=== PATIENT | male | born 1970 | race Caucasian/White ===

== ENCOUNTER 2016-07-14 02:29 | Emergency (ER) | payer OTHER ==
[~2016-07-14] VITALS: Ht 177.8 cm; Wt 136.4 kg
[~2016-07-14 02:29] MED LIST: DALB500V IV
[2016-07-14 02:37] VITALS: BP 164/82; PULSE 107; RESP 22; O2SAT 94
--- NOTE | 2016-07-14 02:56 | ED.REPORT ---
HPI-Rash / Abscess Date of Service Jul 14, 2016 ED Provider: Bi Cruz MD Patient is an obese 46 year old male with a history of IV drug abuse, hepatitis C, and previous abscesses positive for MRSA who presents to the ED with a large abscess to his right upper chest that has been present for the past week. He reports associated pain, redness, swelling, and clear drainage. Patient also has an ulcer on the dorsum of his left foot, which developed 2 weeks ago. He also reports having right shoulder pain for several months. Patient states that he uses heroin daily and methamphetamine occasionally "when he is tired". Patient reports previously going to treatment for his drug abuse in the past. The patient was previously on Suboxone while in inpatient treatment for heroin abuse, but he states that they stopped using it once he transitioned into outpatient treatment. 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 He admits to having multiple other small sores from IVDA. He denies a fever. Nursing Notes Stated Complaint: RT SHOULDER PAIN, ABSCESS ON CHEST AND LEFT FOOT Chief Complaint: Skin Rash/Abscess Nursing Notes Reviewed: Yes Allergies: Coded Allergies: Sulfa (Sulfonamide Antibiotics) (Verified Allergy, Unknown, 12/10/14) Scheduled Buprenorphine HCl/Naloxone HCl (Suboxone 8 mg-2 mg Sl Film) 1 Each Film 1 EACH SL BID Dalbavancin HCl (Dalvance) 500 Mg Vial 500 MG IV ONCE To be given in MOC on 12/22/14 General Time Seen by MD: 02:49 Chief Complaint Abscess Hx Obtained From: Patient Arrived By: Walk-in Onset Occurred: 1 week ago Symptom Duration: Since onset Quality: Painful Severity: Current: Moderate Severity: Maximum: Moderate Recent Healthcare: No recent doctor visit, No recent hospitalization Similar Sx Previous: No Past Medical History Past Medical History Notes: PCP: None Past Medical History IVDU (heroin) MRSA infected abscesses due to IVDU hepatitis C Reports: Morbid Obesity Past Surgical History Denies Smoking History Current Every Day Smoker, Heavy Tobacco Smoker Social History Alcohol Use: Denies alcohol use Drug Use: IV drugs, Meth, Other Other Social History: Local resident 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 Physical Exam Initial Vital Signs Vital Signs (First) Date Time Temp Pulse Resp B/P Pulse Ox O2 Delivery O2 Flow Rate FiO2 07/14/16 02:37 37.0 107 22 164/82 94 Room Air Initial VS: Reviewed, Vital signs abnormal Head / Eyes: Atraumatic, Normocephalic, PERRL ENT: Conjunctiva normal, No scleral icterus Neurologic: Alert, Oriented, Nonfocal Psychiatric: Mood/affect normal, Behavior normal, Normal thought content General/Constitutional: Awake, Alert Appearance / Presentation: Positive: Obese Skin: Warm, Dry Rash / Lesion Notes: multiple sores from IV injections. Below right nipple there is a large indurated erythematous area with drainage. Rash / Lesion Pattern: Positive: Track cordon Head / Eyes: Normocephalic, PERRL, EOMI Respiratory / Chest: Breath sounds NL, Breath sounds = bilat, No respiratory distress large bruised area on his upper right chest Cardiovascular: Regular rhythm Heart Rate / Rhythm: Positive: Tachycardia Upper Extremity / MS: Neurologic intact, Vascular intact Lower Extremity / Pelvis / MS: Neurologic intact, Vascular intact Ankle / Foot: No deformity, Neurologic intact small ulcer to the dorsum of the right foot, appears clean and healing Interpretation & Diagnostics CT Chest Interpretation CONCLUSION: Right chest wall abscess cavity filled with air. The cavity communicates with the skin surface. No extension into the deep soft tissue structures. Splenomegaly. Possible cirrhotic changes of the liver. Radiologist: Emile Villarreal MD 07/14/2016 - 4:16:30 AM PST Study type: Chest CT no contrast Interpretation / Wet Read by: Interpret - Radiologist Procedures Incision & Drainage Abscess Time: 04:47 Procedure Performed by: ED physician Consent / Setup / Site Prep: Consent from patient, Time-out performed, Hand hygiene observed, Stand sterile technique, Sterile drapes applied Location of Abscess: right chest wall Skin Preparation Agent: Shurclens Local Anesthesia: Lidocaine w epi 1% Incised Abscess with Scalpel: #11 Pus Drained: Large, Purulent discharge Post-Procedure / Complications: Packing placed, Culture obtained, Gram stain ordered, Dressing applied, No complications, Condition improved, Tolerated procedure well, Patient stable Re-Eval/Medical Decision Med Decision/Clinical Course 46-year-old IV heroin user presents with an infection in his right chest wall. This is started to drain on its own. We were unable to draw blood or get venous access, even with ultrasound-guided attempts. CT scan without IV contrast showed no deep extension of the abscess of these right anterior chest wall. The abscess was then drained a moderate amount of pus and a gauze wick was placed. He was given clindamycin 300 mg by mouth 4 times a day, #10 day supply dispensed. The patient requested and I will write him a prescription for Suboxone for 7 days during which time he will attempt to get into treatment. Re-Evaluation/Progress #1: Time of Eval: 04:43 Re-Evaluation/Progress Note: Informed the patient of the results of his CT scan. The abscess does not extend down to the muscle, meaning that I&D can be preformed in the ED. Patient will be discharged on antibiotics. Re-Evaluation/Progress #2: Time of Eval: 05:05 Patient Status: Condition improved Re-Evaluation/Progress Note: I&D complete. Patient understands and agrees with the plan to be discharged home. Discharge instructions and follow-up discussed. All questions were addressed. Return to the ED warnings given. Counseled Regarding: Diagnosis, Need for follow-up, When/why to return to ED Discharge & Departure Impression: Primary Impression: Chest wall abscess Additional Impression: Heroin abuse Disposition: Home Discharge Condition All VS Reviewed: Yes Condition: Stable Patient Instructions: Abscess Incision and Drainage (ED), Buprenorphine/ Naloxone (By mouth) Additional Instructions: Clindamycin 300 mg by mouth 4 times a day, 10 day supply dispensed. Removal by 2 inches of that packing every day. Follow up with me on Thursday evening after 9 pm here in the emergency room for wound recheck. Suboxone 8/2 film or tab, one dissolved orally twice daily, #14 dispensed. [facility]up at [facility] or [facility] for outpatient Suboxone management. Referrals: Chyna Calvert MD (PCP) Scribe Attestation Portions of this note were transcribed by Aleah Mota. I, Dr. Cruz, personally performed the history, physical exam and medical decision-making; I reviewed and confirmed the accuracy of the information in the transcribed note. Signed by: Stephan Aleman, 07/14/2016 [id number] copies to: Chyna Calvert MD, Howard L MD Jul 14, 2016 02:56 Aleah Mota Jul 14, 2016 03:08
[2016-07-14] MEDS ORDERED: 0.9% Sodium Chloride 1,000 ML IV ONE (03:09)
[2016-07-14] MEDS ORDERED: Ondansetron 2 mg/mL 2 mL Inj IV PRN (03:10)
[2016-07-14] MEDS ORDERED: BUPR1FIL3 SL (05:16)
[2016-07-14 05:37] VITALS: BP 160/80; PULSE 100; RESP 22; O2SAT 95
[2016-07-14] MEDS ORDERED: _Clindamycin 150 mg Capsule PO SCH (06:30)
--- NOTE | 2016-07-14 09:55 | DRSVH ---
PROCEDURE: CT CHEST WITHOUT CONTRAST ([id number]) INDICATIONS: deep right pectoral abscess TECHNIQUE: Noncontrast 5 mm thick sections acquired from the pulmonary apices to the posterior costophrenic angl es. 7 mm thick coronal and sagittal MIP reformats were then acquired. For radiation dose reduction, the following was used: automated exposure control, adjustment of mA and/or kV according to patient size. COMPARISON: None. FINDINGS: Image quality: Excellent. Lungs and pleura: There is a 4 mm groundglass nodule in the right middle lobe (series 3 image 27). T here is discoid atelectasis in the right upper lobe. No acute air space opacities. No pleural effusi ons or pneumothorax. Central and peripheral airways are patent and normal in caliber. Mediastinum: Heart size is normal. No pericardial effusion. No mediastinal adenopathy by size crit eria. Thoracic aorta and central pulmonary arteries are normal in size. Esophagus is normal in jamie amanda. No hiatal hernia. Bones and chest wall: There is skin thickening a complex thickwalled air-fluid collection within the subcutaneous tissue of the right anterior chest wall measuring 3.7 x 4.3 cm, consistent with an absc ess. Note is made of gynecomastia. No suspicious bony lesions. No vertebral body compression fractures. No axillary or supraclavicular adenopathy by size criteria. Thyroid gland is normal. Abdomen: There are gallstones Spleen is enlarged. IMPRESSION: 1. A 3.7 x 4.3 cm complex air/fluid collection in the subcutaneous tissue of the right anterior chest wall consistent with an abscess. There is skin thickening in the right anterior chest wall consisten t with cellulitis. 2. Cholelithiasis. 3. Splenomegaly. 4. A 4 mm groundglass nodule in the right middle lobe. Please see followup recommendation. No significant discrepancy with the application software developer radiology preliminary report. Fleischner Society criteria for SUB-SOLID lung nodule followup. Solitary pure ground-glass nodules5 mm or lessNo followup needed. >5 mm3 mo follow-up CT to confirm persistence. Then annual CT for 3 years. Part-solid nodules3 mo follow-up CT to confirm persistence . If persistent with solid component <5 mm, annual CT for at least 3 years. If solid component is 5 mm or more, biopsy or surgical resection. Consider PET-CT for lesions > 10 mm. Multiple sub-solid nodulesPure ground glass nodules [address] at 2 and 4 years. Pure ground glass nodules >5 mm without dominant lesion. [address] to confirm persistence, then annual followup CT for at least 3 years. Dominant nodule(s) with part-solid or solid component. [address] to confirm persistence. If persistent, consider biopsy or surgical resection, jose if lesions have >5 m m solid component. Dictated by: Kamlesh Tavares M.D. on 07/14/2016 at 9:47 Transcribed by: FARHANA on 07/14/2016 at 9:54 Approved by: Kamlesh Tavaers M.D. on 07/14/2016 at 10:15
== END 2016-07-14 05:38 | disposition home or self-care (01) ==
LOC: SED 02:29
DX: L02.213 Cutaneous abscess of chest wall (principal); F11.10 Opioid abuse, uncomplicated; L97.529 Non-pressure chronic ulcer of other part of left foot with unspecified severity; M25.511 Pain in right shoulder; F17.200 Nicotine dependence, unspecified, uncomplicated; Z86.14 Personal history of Methicillin resistant Staphylococcus aureus infection; Z86.19 Personal history of other infectious and parasitic diseases; Z88.2 Allergy status to sulfonamides

== ENCOUNTER 2016-09-05 07:45 | Observation (INO) | payer OTHER ==
[~2016-09-05] VITALS: Ht 177.8 cm; Wt 145.4 kg
[2016-09-05] VITALS (13 sets, daily range): BP systolic 117–153; BP diastolic 52–89; PULSE 68–93; RESP 15–44; O2SAT 96–100
[~2016-09-05 07:45] MED LIST changes: +BUPR1FIL3 SL; +HYDROmorphone 2 mg/mL Inj ONE
--- NOTE | 2016-09-05 07:56 | ED.REPORT ---
HPI-Rash / Abscess Date of Service Sep 05, 2016 ED Provider: Keanu Corey MD 46 year old male with a history of IV heroin abuse, MRSA, and hepatitis C presents to the ER complaining of abscesses to is right abdomen, and right lower thigh noticed three days ago. Per patient speculation, symptoms are caused by a "bad batch of heroin". He also reports a wound to the dorsum of the left foot. Patient denies fever, chills, nausea, and vomiting. Currently he uses heroin regularly, but expresses interest in rehabilitation. Last heroin use was 02:00 this morning. He typically he uses approximately 1g heroin per use. Nursing Notes Stated Complaint: ABSCESS Chief Complaint: Skin Rash/Abscess Nursing Notes Reviewed: Yes Allergies: Coded Allergies: Sulfa (Sulfonamide Antibiotics) (Verified Allergy, Unknown, 12/10/14) Scheduled Buprenorphine HCl/Naloxone HCl (Suboxone 8 mg-2 mg Sl Film) 1 Each Film 1 EACH SL BID Dalbavancin HCl (Dalvance) 500 Mg Vial 500 MG IV ONCE To be given in MOC on 12/22/14 General Time Seen by MD: 07:55 Chief Complaint Abscess Hx Obtained From: Patient Arrived By: Walk-in Onset Occurred: 3 days ago Symptom Duration: Since onset Location: : Abdomen: Lower extremity (Right) Quality: Painful Severity: Current: Moderate Severity: Maximum: Moderate Associated with: Denies Fever, Denies Nausea, Denies Vomiting Pertinent Negative: Pt denies other symptoms Related History: Reports: MRSA Similar Sx Previous: Yes Past Medical History Past Medical History Notes: PCP: None Past Medical History IVDU (heroin) MRSA infected abscesses due to IVDU hepatitis C Reports: Morbid Obesity Past Surgical History Denies Smoking History Current Every Day Smoker, Heavy Tobacco Smoker Social History Alcohol Use: Denies alcohol use Drug Use: IV drugs, Meth, Other Other Social History: Local resident 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 Physical Exam Initial Vital Signs Vital Signs (First) Date Time Temp Pulse Resp B/P Pulse Ox O2 Delivery O2 Flow Rate FiO2 09/05/16 07:47 36.2 93 17 153/84 100 Room Air Initial VS: Reviewed Head / Eyes: Atraumatic, Normocephalic Neck: Supple, Non-tender, Full range of motion Extremities: Vascular intact, Neuro intact Neurologic: Alert, Oriented, Nonfocal Psychiatric: Mood/affect normal, Behavior normal, Normal thought content General/Constitutional: Awake, Alert, Well developed, Well nourished Appearance / Presentation: Positive: Obese Skin: Warm, Dry, Intact Abscess Notes: Large abscesses to the Right anterior thigh, and Right abdominal wall. Respiratory / Chest: Breath sounds NL, Breath sounds = bilat, No respiratory distress, No rales, No rhonchi, No wheezing Cardiovascular: Heart rate NL, Regular rhythm, Heart sounds NL, Peripheral circulation NL Upper Extremity / MS: Inspection NL, No swelling, Non-tender, No erythema Ankle / Foot: Full range of motion, Neurologic intact, Vascular intact 4mm healing ulcer, dorsum of the Left foot Interpretation & Diagnostics Lab Results Interpretation Result Diagram: 09/05/16 0950 09/05/16 1023 Test 09/05/16 09:50 White Blood Count 6.5th/mm3 (3.8-10.1) Red Blood Count 3.92mil/mm3 (4.40-5.80) Hemoglobin 10.8g/dL (13.8-17.2) Hematocrit 33.4% (41.0-50.0) Mean Corpuscular Volume 85.2fL (81-100) Mean Corpuscular Hemoglobin 27.6pg (27.0-35.0) Mean Corpuscular Hemoglobin Concent 32.3% (32.0-37.0) Red Cell Distribution Width 14.0% (12.3-15.4) Platelet Count 149bil/L (150-400) Neutrophils (%) (Auto) 67.8% (40-74) Lymphocytes (%) (Auto) 19.6% (14-46) Monocytes (%) (Auto) 9.6% (4-12) Eosinophils (%) (Auto) 2.6% (0-5) Basophils (%) (Auto) 0.2% (0-3) Prothrombin Time 10.2sec (8.1-12.5) Prothromb Time International Ratio 0.95ratio Re-Eval/Medical Decision Source of Hx: Old records Re-Evaluation/Progress : Time of Eval: 08:46 Re-Evaluation/Progress Note: Completed bedside ultrasound. Discussed US results and physical examination findings and need for admission for surgery. Patient is amenable to the plan. Last PO intake was milk around 06:50 this morning. Consultation #1: Referral / Consult Name: Cecil Zhu MD Consulted With: Surgeon Requested Call at: 08:57 Call Returned at: 08:59 Note: Agrees to consult. Admit to hospitalist. Consultation #2: Referral / Consult Name: Eyal Hunt MD Consulted With: Anesthesia Call Returned at: 09:39 Consultation #3: Referral / Consult Name: Jim Watts MD Consulted With: Hospitalist Call Returned at: 09:52 Elevated Guard: Agrees with eval, Agrees with plan, Accepts admit Counseled Regarding: Diagnosis, Lab results, Need for admission Discharge & Departure Impression: Primary Impression: Abscess of abdominal wall Additional Impression: Abscess of right thigh Disposition: ADMITTED TO HOSPITAL Discharge Condition All VS Reviewed: Yes Condition: Stable Referrals: Chyna Calvert MD (PCP) Stephan Attestation Portions of this note were transcribed by Cristian Colbert. I, Dr. Corey, personally performed the history, physical exam and medical decision-making; I reviewed and confirmed the accuracy of the information in the transcribed note. Signed by: Stephan Ramos, 09/05/2016 and 09:58 copies to: Chyna Calvert MD, Kirk H MD Sep 05, 2016 07:56 CRISTIAN COLBERT Sep 05, 2016 08:01
[2016-09-05 09:54] LABS: BASOPHILS % (AUTO) 0.2 % (0-3); EOSINOPHILS % (AUTO) 2.6 % (0-5); MONOCYTES % (AUTO) 9.6 % (4-12); Mean Corpuscular Hemoglobin 27.6 pg (27.0-35.0); Mean Corpuscular Volume 85.2 fL (81-100); NEUTROPHILS % (AUTO) 67.8 % (40-74); Platelet Count 149 bil/L (150-400)
[2016-09-05] MEDS ORDERED: Ondansetron 2 mg/mL 2 mL Inj IVPUSH PRN ×2 (10:10→15:10)
[2016-09-05] MEDS ORDERED: Vancomycin Dose per Pharmacist XX SCH (10:10)
[2016-09-05] MEDS ORDERED: Polyethylene Glycol (PEG) 17 Gm Powder PO PRN (10:10)
[2016-09-05] MEDS ORDERED: Alum-Mag Hydrox-Simeth 30 mL Suspension PO PRN (10:10)
[2016-09-05] MEDS ORDERED: MetoCLOpramide 5 mg/mL 2 mL Inj ONE (10:16)
[2016-09-05] MEDS ORDERED: Propofol 10,000 mCg/mL 20 mL Inj ONE (10:16)
[2016-09-05] MEDS ORDERED: Ondansetron 2 mg/mL 2 mL Inj ONE (10:16)
[2016-09-05 10:19] LABS: INR 0.95 ratio
--- NOTE | 2016-09-05 10:33 | PCM.HPSURG ---
Subjective Date of Service: Sep 05, 2016 Referring Provider: Admitting Physician: Jim Watts MD Primary Care Physician: Nopcp Attending Physician: Jim Watts MD Surgeon: José Antonio Zhu MD Chief Complaint Skin rash/abscess History of Present Illness 46 y/o obese male with a history of IV heroin use, recurrent skin and soft tissue infections including MRSA, and hepatitis C who presented to the ED complaining of right-sided abscesses of his thigh and abdomen for the past 3-5 days. He reports chronic bilateral lower extremity redness and swelling which he feels is at baseline. He states that he has had several sores and small abscesses recently that he 'popped' but when the one on his thigh kept getting bigger he decided to come in. He endorses injecting heroin directly into his thigh and attributes the abscess to a 'bad batch of heroin'. 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 He denies fever, chills, chest pain or palpitations, nausea, and vomiting. He expresses interest in rehab but currently uses heroin regularly, ~1g per use, with his last injection at 02:00 this morning. He denies fever, chills, shortness of breath, chest pain or palpitations, diarrhea , nausea and vomiting. He endorses right sided abdominal as well as lower extremity pain and swelling. In the ED, he was afebrile and hypertension with a BP of 153/84 and a pulse of 93. SpO2 100% on room air with a RR of 17. A bedside ultrasound was performed and surgery consulted from the ED. White blood cell count is within normal limits, hemoglobin is 10.8, hematocrit is 33.4, platelets 149 and PT/INR 10.2/ 0.95. Additional labs still pending at this time. Patient admitted for I&D on right thigh as well as right chest and IV antibiotics. 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 Hx Alcohol Use: No Hx Substance Use: Yes (Heroin daily, meth occasionally) Hx Tobacco Use: Yes PMH HEENT History History of ENT Problems?: No HEENT History: Denies:: Cataracts Dysphagia Sinus Problem Cardiovascular History History of Heart Problems?: Yes Cardiovascular History: Positive for:: Edema Denies:: Congestive Heart Failure Hypertension Respiratory History of Respiratory Problem: No Respiratory History: Denies:: Tuberculosis Neurological History Hx Neurologic Problems?: No Gastrointestinal History HX of GI Problems?: No Genitourinary History Hx of Gu Problems?: No Female/Male History Reproductive History Male: Denies: Prostate Problems Scrotal Mass Musculoskeletal History Hx Musculoskeletal Problems?: No Psycho Social History Hx of Psycho/Social Problems?: No (denies) Other History Hx Any Other Health Problems?: No Other History: Positive for:: Hospitalization ([facility] 4 years ago) Diabetes: No Other History/Comments IV Drug Use (Heroine/Methamphetamine) MRSA infected abscesses due to IV Drug Use History of recurrent skin/soft tissue infections Hepatitis C Obesity BMI 41.1 Social History Hx Alcohol Use: NoHx Substance Use: Yes (Heroin daily, meth occasionally)Hx Tobacco Use: Yes Smoking Status: Current Every Day Smoker Heavy Tobacco Smoker Family History PMH Family Member: Father (emphysema) Review of Systems Constitutional: Denies: Chills, Fever ENT: Denies: Membranes Dry, Ulcers/Sores in Mouth Cardiovascular: Denies: Chest Pain, Palpitations Respiratory: Denies: Shortness of Breath Gastrointestinal: Denies: Nausea, Vomiting Musculoskeletal: Reports: Redness, Shoulder Pain, Swelling Skin: Reports: Lesions, Rash Neurological: Denies: Confusion, Dizziness H&P Surgical Exam Exam General: Alert, Oriented X3, No Acute Distress Lungs: Clear to Auscultation Heart: Regular Rate/Rhythm (difficult to auscultate due to body habitus, no murmurs appreciated. ) Chest: Large, indurated and erythematous abscess on R chest Abdomen: Soft, Other ( Numerous hyperpigemented lesions presumably from prior faruncles/abscess. Scattered echymosis) Extremities: Distal Pulses Palpable, Warm (erythematous with circumferential brawny discoloration, scattered ecchymosis bilaterally, blisters noted on right tibia, small ulceration on dorsum of left foot), Edema Generalized Neuro: Grossly Neurologically Intact Lab & Micro Results: Laboratory Tests Test 09/05/16 09:50 09/05/16 10:23 White Blood Count 6.5th/mm3 (3.8-10.1) Red Blood Count 3.92mil/mm3 (4.40-5.80) Hemoglobin 10.8g/dL (13.8-17.2) Hematocrit 33.4% (41.0-50.0) Mean Corpuscular Volume 85.2fL (81-100) Mean Corpuscular Hemoglobin 27.6pg (27.0-35.0) Mean Corpuscular Hemoglobin Concent 32.3% (32.0-37.0) Red Cell Distribution Width 14.0% (12.3-15.4) Platelet Count 149bil/L (150-400) Neutrophils (%) (Auto) 67.8% (40-74) Lymphocytes (%) (Auto) 19.6% (14-46) Monocytes (%) (Auto) 9.6% (4-12) Eosinophils (%) (Auto) 2.6% (0-5) Basophils (%) (Auto) 0.2% (0-3) Prothrombin Time 10.2sec (8.1-12.5) Prothromb Time International Ratio 0.95ratio Sodium Level 138mEq/L (134-144) Potassium Level 3.9mEq/L (3.5-5.2) Chloride Level 100mEq/L (97-108) Carbon Dioxide Level 24mmol/L (18-29) Blood Urea Nitrogen 13mg/dL (6-24) Creatinine 0.61mg/dL (0.76-1.27) Estimat Glomerular Filtration Rate 152mL/min (>59) Glucose Level 147mg/dL (60-99) Calcium Level 8.9mg/dL (8.5-10.1) Total Bilirubin 0.5mg/dL (0.0-1.2) Aspartate Amino Transf (AST/SGOT) 54U/L (0-50) Alanine Aminotransferase (ALT/SGPT) 71U/L (0-44) Alkaline Phosphatase 81U/L (25-150) Total Protein 7.0g/dL (6.4-8.4) Albumin 3.7g/dL (3.4-5.0) Assessment & Plan Assessment 46 y/o obese male with a history of IV heroin use, recurrent skin and soft tissue infections including MRSA, and hepatitis C admitted for I&D of R chest abscess as well as R thigh abscess and IV antibiotics. . Pain Evaluation: Adequate Pain Control VTE Prophylaxis Indicated: Meets Criteria for Anticoag Therapy, VTE on Admission VTE Mechanical Devices: Intermittant Pneumatic CD Plan: -I&D of R chest and R thigh abscess planned for this afternoon -Continue IV antibiotics Resuscitation Status: CPR: Attempt Resuscitation Attending Statement: I personally interviewed and examined the pt, and I agree with Dr. Gee's assessment and plan. Proceed to I & D later today. Martha Gee DO Sep 05, 2016 10:33 Cecil Zhu MD Sep 10, 2016 10:50
[2016-09-05] MEDS ORDERED: Vancomycin Inj 2,000 MG in 0.9% Sodium Chloride 500 ML IV ONE (11:00)
--- NOTE | 2016-09-05 11:29 | NUR ---
Expectations Spoke with Chapin Leija in ER regarding behavioral contract. Er reviewed behavioral contract with pt and pt states he understands. Pt understands that belongings will be locked up, visiting hours with be 8 am-9pm and nobody can stay the night, all belongings of visitors may not enter the room, curtains will be open and shade up, we may ask visitors to leave if we feel it appropriate. Pt states that the last time he did heroin was 09/05 @ 0130 and generally starts going through withdrawals 8 hours later. ER unable to obtain IV line therefore plan is for anesthesia to start an iv line. Pt is cooperative at this time. Care conts
[2016-09-05 11:35] LABS: APPEARANCE,URINE CLEAR (CLEAR,HAZY); COLOR,URINE DARK YELLOW (YELLOW)
[2016-09-05 11:36] LABS: OCCULT BLOOD,URINE NEGATIVE (NEGATIVE); UROBILINOGEN,URINE NORMAL (NORMAL)
[2016-09-05] MEDS ORDERED: IBUP800T28 PO (13:00)
[2016-09-05] MEDS ORDERED: Lactated Ringer's 1,000 ML IV ONE (13:30)
--- NOTE | 2016-09-05 14:03 | NUR ---
Wound Care Wound care consulted, pt seen at bedside. 46 yo iv drug user with indurated abscesses at right abdomen and right thigh, awaiting surgical I&D later today. Pt also has dry superficial abscess at his left foot. Pt will need packing changes after surgery and possible follow up at wound center, no current wound care needs.
[2016-09-05] MEDS: Ampicillin-Sulbactam Inj 3,000 MG in 0.9% Sodium Chloride 100 ML IV SCH ×2 (14:30→20:15)
--- NOTE | 2016-09-05 15:00 | NUR ---
TO OR No IV access at this time. Report given to Ivory in the OR. Transported to the OR via a hospital bed.
[2016-09-05] MEDS ORDERED: Lactated Ringer's 1,000 ML IV SCH (15:09)
[2016-09-05] MEDS ORDERED: Lactated Ringer's 500 ML IV PRN (15:09)
--- NOTE | 2016-09-05 15:09 | PCM.HPANE ---
Patient Data Surgeon Admitting Provider:Jim Watts MD Attending Provider:Jim Watts MD Primary Care Physician:Nopcp Other Provider: Reason for Visit Multiple Skin Abscess MULTIPLE SKIN ABSCESS Ht/WT & BMI Height (Feet): 5 Height (Inches): 10 Weight (Kilograms): 145.45 Body Mass Index Allergies Coded Allergies: Sulfa (Sulfonamide Antibiotics) (Verified Allergy, Unknown, 12/10/14) Diabetes History Hx Diabetes?: No MRSA MRSA: Yes Medications Hypertension Medication: No Home Meds Incl Beta Josefina: No Reported Medications Ibuprofen 800 Mg [id number] Mg PO BID Ref 0 09/05/16 Discontinued Scripts Buprenorphine HCl/Naloxone HCl (Suboxone 8 mg-2 mg Sl Film)1 Each Film1 Each SL BID #14 FILM Prov:Bi Cruz MD 07/14/16 Dalbavancin HCl (Dalvance)500 Mg [id number] Mg IV ONCE #1 VIAL To be given in MOC on 12/22/14 Prov:Larry Joe MD 12/15/14 History History of ENT Problems?: No HEENT History: Denies:: Cataracts Dysphagia Sinus Problem Hx of Heart Problems?: Yes Cardiovascular History: Positive for:: Edema (BLE) Denies:: Cardiac Surgery Chest Pain Congestive Heart Failure Heart Murmur Hypertension Irregular Heartbeat Pacemaker Thrombophlebitis Hx of Respiratory Problem?: No Respiratory History: Denies:: Tuberculosis Hx Neurologic Problems?: No Hx of GI Problems?: No Hx of Problems?: No Male Hx: Denies:: Prostate Problems Scrotal Mass Testicular Surgery Hx Musculoskeletal Problems?: No Hx of Psycho/Social Problems?: No Hx Surgeries?: Yes (GANGLION CYST REMOVAL) Hx Any Other Health Problems?: No Other History: Positive for:: Hospitalization ([facility]) History Blood Transfusions: Denies:: Blood Transfuse Reaction Blood Transfusions Hx Diabetes: No 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 Hx Alcohol Use: NoHx Substance Use: Yes (HEROIN DAILY, METH) Smoking Status: Current Every Day Smoker Heavy Tobacco Smoker Have You Smoked inLast 12 mo: YesApprox How Many Cigarettes/day: 1/2 PACK PER DAY Stop/Bang Treated for Sleep Apnea?: No Do You Have a CPAP Machine?: No S-Snoring: Do You Snore Loudly: Yes T-Tired: feel tired, fatigued: No O-Obsered: Observed not breath: No P-Blood Pressure: treated: No B- Body Mass Index > 35 kg/m2: Yes A- Age over 50: Yes N- Neck Large Circumference: No G- Gender Male: Yes JOSEPH Total Score: 4 JOSEPH Risk Assessment: High Risk, =/>3 Yes JOSEPH Category 2: Yes Risk Assessment Category Category 1A: Patient has history of documented sleep apnea, and HAS NOT received any narcotic, sedative or anesthesia administration during this stay. Category 1B: Patient has history of documented sleep apnea, and HAS received any narcotic , sedative or anesthesia administration during this stay Category 2: Patient has SUSPECTED Obstructive Sleep Apnea, and HAS received any narcotic , sedative or anesthesia administration during this stay. Category 3: Patient has SUSPECTED Obstructive Sleep Apnea and HAS NOT received narcotic, sedative or anesthesia administration during this stay. Category 4: Outpatient in Procedural Areas with known sleep apnea or who screen positive for High Risk via the STOP/BANG questionnaire. Exam Exam Vital Signs Vital Signs Date Time Temp Pulse Resp B/P Pulse Ox O2 Delivery O2 Flow Rate FiO2 09/05/16 11:25 36.6 86 18 126/74 100 Room Air 09/05/16 10:23 83 16 149/89 100 Room Air 09/05/16 07:47 36.2 93 17 153/84 100 Room Air General Appearance: Oriented X3 HEENT/AIRWAY: MP 3 Lungs: Normal Air Movement Heart: Regular Rate/Rhythm Meds/Labs/Diagnostics Labs Test 09/05/16 09:50 09/05/16 10:23 09/05/16 11:00 White Blood Count 6.5th/mm3 (3.8-10.1) Red Blood Count 3.92mil/mm3 (4.40-5.80) Hemoglobin 10.8g/dL (13.8-17.2) Hematocrit 33.4% (41.0-50.0) Mean Corpuscular Volume 85.2fL (81-100) Mean Corpuscular Hemoglobin 27.6pg (27.0-35.0) Mean Corpuscular Hemoglobin Concent 32.3% (32.0-37.0) Red Cell Distribution Width 14.0% (12.3-15.4) Platelet Count 149bil/L (150-400) Neutrophils (%) (Auto) 67.8% (40-74) Lymphocytes (%) (Auto) 19.6% (14-46) Monocytes (%) (Auto) 9.6% (4-12) Eosinophils (%) (Auto) 2.6% (0-5) Basophils (%) (Auto) 0.2% (0-3) Prothrombin Time 10.2sec (8.1-12.5) Prothromb Time International Ratio 0.95ratio Sodium Level 138mEq/L (134-144) Potassium Level 3.9mEq/L (3.5-5.2) Chloride Level 100mEq/L (97-108) Carbon Dioxide Level 24mmol/L (18-29) Blood Urea Nitrogen 13mg/dL (6-24) Creatinine 0.61mg/dL (0.76-1.27) Estimat Glomerular Filtration Rate 152mL/min (>59) Glucose Level 147mg/dL (60-99) Calcium Level 8.9mg/dL (8.5-10.1) Total Bilirubin 0.5mg/dL (0.0-1.2) Aspartate Amino Transf (AST/SGOT) 54U/L (0-50) Alanine Aminotransferase (ALT/SGPT) 71U/L (0-44) Alkaline Phosphatase 81U/L (25-150) Total Protein 7.0g/dL (6.4-8.4) Albumin 3.7g/dL (3.4-5.0) Urine Color Dark yellow (YELLOW) Urine Appearance Clear (CLEAR,HAZY) Urine pH 6.0 (5.0-8.0) Urine Specific [place] 1.030 (1.003-1.035) Urine Protein Negativemg/dL (NEG,TRACE) Urine Glucose (UA) Negativemg/dL (NEGATIVE) Urine Ketones Negativemg/dL (NEGATIVE) Urine Occult Blood Negative (NEGATIVE) Urine Nitrite Negative (NEGATIVE) Urine Bilirubin Negative (NEGATIVE) Urine Urobilinogen Normalmg/dL (NORMAL) Urine Leukocyte Esterase Negative (NEGATIVE) Urine RBC 0-2/hpf (0-2) Urine WBC 0-5/hpf (0-5) Urine Epithelial Cells Occasional/hpf (NONE-MOD) Urine Crystals None seen (NONE SEEN) Urine Bacteria None/hpf (NONE-FEW) Urine Hyaline Casts Occasional/lpf (NONE) Urine Granular Casts None seen (NONE SEEN) Urine Waxy Casts None seen (NONE SEEN) Urine Red Blood Cell Casts None seen (NONE SEEN) Urine White Blood Cell Casts None seen (NONE SEEN) Urine Mucus Present (None Seen) Urine Trichomonas None seen (NONE SEEN) Urine Yeast None (NONE SEEN) Urinalysis Comment None Urine Culture Reflexed Not indicated Urine Opiates Screen Positive Urine Methadone Screen Negative Urine Barbiturates Screen Negative Urine Amphetamines Screen Positive Urine Benzodiazepines Screen Negative Urine Cocaine Metabolite Screen Negative Urine Cannabinoids Screen Negative Plan Impression Patient chart reviewed, patient interviewed and anesthestic plan with risks, benefits, and alternatives discussed, and informed consent obtained. NPO Status: > 8 hrs ASA Physical Status: ASA4 Life Threatening Anesthetic Support Modalities: Central Line Anesthetic Plan: GA Bene/Risks/Altern/Consents: Yes HP Complete Prior to Induction: Yes Micah Felipe MD Sep 05, 2016 15:09
[2016-09-05] MEDS ORDERED: EPHEDrine Sulfate 50 mg/mL Inj IVPUSH PRN (15:10)
[2016-09-05] MEDS ORDERED: Dexamethasone 4 mg/mL Inj IVPUSH PRN (15:10)
[2016-09-05] MEDS ORDERED: Phenylephrine 10,000 mCg/mL Inj IVPUSH PRN (15:10)
[2016-09-05] MEDS ORDERED: fentaNYL-PF 50 mCg/mL 2 mL Inj IVPUSH PRN (15:10)
[2016-09-05] MEDS ORDERED: MetoCLOpramide 5 mg/mL 2 mL Inj IVPUSH PRN (15:10)
[2016-09-05] MEDS ORDERED: HYDROmorphone 1 mg/mL Inj IVPUSH PRN (15:10)
--- NOTE | 2016-09-05 15:57 | PCM.HPMED ---
Subjective Date of Service Sep 05, 2016 Primary Provider: Admitting Physician: Jim Watts MD Primary Care Physician: Nopkarol Attending Physician: Jim Watts MD Admit Status: From the Emergency Department, Full Admit, Admit to Red Team Chief Complaint: abscess/painful swelling on anterior abdominal wall and right thigh/4 days. History of Present Illness: 46 gentleman with past medical history of IV heroin abuse, recurrent cellulitis and abscess including MRSA requiring multiple hospitalizations, and hepatitis C presented to the ED complaining of right thigh and right upper quadrant abdominal wall painful swelling of 4 days. Admits injecting heroine to these sites recently. he has chronic bilateral lower extremity redness and swelling which he feels is at baseline. denies fever, chills, nausea, and vomiting. He expresses interest in rehab but currently uses heroin regularly, ~1g per use, with his last injection at 02:00 this morning. In the ED, he was afebrile and hypertension with a BP of 153/84 and a pulse of 93. SpO2 100% on room air with a RR of 17. No leukocytosis, hemoglobin is 10.8,, platelets 149, CMP unremarkable except slightly elevated transaminase Ed unable to place IV line in emergency room, surgery consulted. Scheduled for incision and drainage. IV line to be established by anesthesia in OR for IV antibiotics. 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 Obese patient is lying comfortably in hospital bed HEENT: Head is normocephalic atraumatic, Pupils equal and reactive, extraocular movements intact, Lungs clear to auscultation bilaterally Heart regular rate and rhythm without murmurs gallops or rubs Abdomen RUQ abdominal wall tender swelling, erythematous, hot to touch, slightly fluctuant 7x5 cm, Extremities right thigh tender swelling, erythematous, hot to touch, slightly fluctuant 7x8cm, bilateral leg erythema, nontender, not hot to touch Psych alert and oriented to person place and time Neuro cranial nerves II through XII are grossly intact Lymph: There is no lymphadenopathy appreciated in the cervical supra infraclavicular regions : no mayorga Lab and Diagnostics Result Diagram: 09/05/16 0950 09/05/16 1023 Assessment & Plan 46 gentleman with past medical history of IV heroin abuse, recurrent cellulitis and abscess including MRSA requiring multiple hospitalizations, and hepatitis C presented to the ED complaining of right thigh and right upper quadrant abdominal wall painful swelling of 4 days # Right thigh and RUQ abdominal abscess, acute, poa -Difficulty to place IV line in emergency room, Scheduled for incision and drainage for later today. IV line to be established by anesthesia in OR for IV antibiotics. -Blood culture to be collected before antibiotics. -Zosyn and vancomycin ordered -Pain control: Oxycodone 20 mg by mouth every 4-6 h, will try to avoid IV narcotics. -surgeon Dr Zhu # IV drug abuse, chronic -SW consult # hep C infection , chronic -Recommend outpatient follow-up #Obesity, chronic full code Patient admitted under inpatient status with expected length of stay > 2 midnights for severity of present symptoms, complexities of treatment plan and risk for adverse events Pain Evaluation: Adequate Pain Control VTE Prophylaxis Indicated: Meets Criteria for Anticoag Therapy, VTE on Admission VTE Mechanical Devices: Intermittant Pneumatic CD Resuscitation Status: CPR: Attempt Resuscitation Jim Watts MD Sep 05, 2016 15:57
--- NOTE | 2016-09-05 17:17 | PCM.ANEP1 ---
Post Anesthesia Phase 1 PACU Phase 1 Assessment Date of Service: Sep 05, 2016 Vital Signs Vital Signs Date Time Temp Pulse Resp B/P Pulse Ox O2 Delivery O2 Flow Rate FiO2 09/05/16 17:15 78 44 96 Room Air 09/05/16 17:09 82 18 99 Room Air 09/05/16 16:56 36.2 79 24 123/52 100 Simple Mask 8 09/05/16 11:25 36.6 86 18 126/74 100 Room Air 09/05/16 10:23 83 16 149/89 100 Room Air Anesthetic Administered: GA Level of Alertness: Awake, talking Pain: No Pain Scale Score: 8 Nausea or Vomiting: No Oxygen Delivery: Room Air Lungs: Normal Air Movement Micah Felipe MD Sep 05, 2016 17:17
--- NOTE | 2016-09-05 17:19 | PCM.ANEP2 ---
Post Anesthesia Evaluation ASA/CMS Post Anesthesia VS in Patient's Normal Range?: Yes Resp Stable; Airway Patent?: Yes CV Function & Hydration Stable: Yes Mental Status Recovered?: Yes Pain control Satisfactory?: Yes N/V Control Satisfactory?: Yes Additional Comments patient demanding to leave the hospital. does not care that he has not finished his antibiotics. states he is unwilling to stay and have the hospitalists give him so little narcotic. Currently he denies any pain and further states he is not going to stay and we can so nothing to keep him. Ordered the Right IJ to be removed so he can go home Micah Felipe MD Sep 05, 2016 17:19
--- NOTE | 2016-09-05 17:34 | OP ---
[address] [address] OPERATIVE REPORT PATIENT: CRISTHIAN CHONG : 1970 MR#: [id number] ADMIT: 09/05/2016 JOB ID: [id number] DATE OF SURGERY: 09/05/2016 SURGEON: Cecil Zhu MD AIRCRAFT ENGINEER: Martha Gee DO, resident one. ANESTHESIA: General. PREOPERATIVE DIAGNOSIS(ES): Right thigh and right chest wall abscesses. POSTOPERATIVE DIAGNOSIS(ES): Right thigh and right chest wall abscesses. PRINCIPAL PROCEDURE: Incision and drainage of right thigh and right chest wall abscesses. INDICATION FOR PROCEDURE: The patient is a 46-year-old male with IV drug abuse who has large subcu abscesses of the right thigh and right chest wall. PRINCIPAL FINDING: Successful I and D of both abscess. The right chest wall incision was 10 cm and the right thigh incision was 12 cm. PROCEDURE COURSE: The patient was brought to the operating table and underwent general endotracheal anesthesia. The patient was also provided with a right IJ central line. The patient was started on IV antibiotics. A time-out was performed. The patient's right chest wall and right thigh abscesses were then prepped and draped in the usual sterile fashion. Next, we started with the right chest wall abscess. Using a syringe, and using an 18-gauge needle, the abscess was aspirated and sent for cultures. The same thing was applied to the right thigh abscess and it was aspirated and sent for cultures. Next, a transverse incision was made over the right chest wall abscess and the incision was extended medially and laterally, and went down until the abscess cavity was unroofed. Hemostasis was verified using cautery. The subcutaneous tissue was probed both digitally and using a Angeli clamp. Until we were sure there were no undrained abscesses. The abscess cavity was irrigated with saline and hemostasis was controlled. The incision at the chest wall was 10 cm. Next, we turned our attention to the right thigh abscess and again using the scalpel a transverse incision was made. The abscess cavity was unroofed and we suctioned off all of the pus. The abscess cavity was probed also digitally and also using a Angeli clamp until we were sure there was no undrained abscess. There was some black subcu tar-appearing like tissue and this was excised and sent to Pathology. The wound cavity was irrigated with saline and hemostasis was controlled. The right thigh incision was 12 cm. Next, Kerlix soaked in half-strength Betadine was then packed into both cavities and then sterile dressing was applied. By the end of the procedure, needle counts and sponge counts were correct. The patient was then extubated and taken to the recovery room in stable satisfactory condition. A chest x-ray will be ordered in the recovery room.
--- NOTE | 2016-09-05 19:01 | DRSVH ---
PROCEDURE: X-RAY CHEST ONE VIEW, PORTABLE ([id number]) INDICATIONS: check central line TECHNIQUE: One view of the chest was acquired. COMPARISON: [facility], , CHEST 1VW (PORTABLE), 12/11/2014, 13:52. FINDINGS: Surgical changes and devices: There is a right IJ central line with the tip projecting to the area of SVC. Lungs and pleura: Lung volumes are small consistent with shallow inspiration. No pleural effusions o r pneumothorax. There is left basilar atelectasis. Mediastinum: Mediastinal contours appear normal. Heart size is normal. Bones and chest wall: No suspicious bony lesions. Overlying soft tissues appear unremarkable. IMPRESSION: The right IJ central line projects to the area of SVC. Dictated by: Kamlesh Tavares M.D. on 09/05/2016 at 18:58 Approved by: Kamlesh Tavares M.D. on 09/05/2016 at 18:59
--- NOTE | 2016-09-05 19:21 | NUR ---
POST-OP Patient received from PACU via a hospital bed. Vanco running at this time. On room air. Via FELDT scale patient pain level is 0/10. Drowsy at this time. Dressing in his abdomen and L leg is CDI. Unable to orient at this time. Bed alarm is on for safety. Endorsed care to incoming RN.
[2016-09-05] MEDS ORDERED: 0.9% Sodium Chloride 250 ML ONE (20:08)
[2016-09-06 01:00] VITALS: BP 120/69; PULSE 87; RESP 18; O2SAT 96
[2016-09-06] MEDS: Ampicillin-Sulbactam Inj 3,000 MG in 0.9% Sodium Chloride 100 ML IV SCH (02:00)
--- NOTE | 2016-09-06 03:06 | NUR ---
Mentation/Pain Patient drowsy, but arouses to verbal and tactile stimuli easily. A&Ox3 when awake. Pleasant and cooperative with care. Receiving Oxycodone 20mg PO for pain management with effective results. Rates pain to right neck, right chest, and right leg 7/10. Noted to be resting with eyes closed upon reassessments. Using call light appropriately for needs.
[2016-09-06] MEDS ORDERED: Vancomycin Inj 1,500 MG in 0.9% Sodium Chloride 500 ML IV SCH (04:00)
--- NOTE | 2016-09-06 04:29 | PCM.CONPHA ---
Subjective Date of Service: Sep 05, 2016 Requesting Provider: Jim Watts MD abscess/painful swelling on anterior abdominal wall and right thigh/4 days. History of Present Illness recurrent cellulitis/abscess with hx of MRSA Reason for Pharmacy Consult: Vancomycin Dosing Objective Vital Signs Date Time Temp Pulse Resp B/P Pulse Ox O2 Delivery O2 Flow Rate FiO2 09/06/16 01:00 37.1 87 18 120/69 96 Room Air 09/05/16 20:55 36.8 83 18 117/72 99 Room Air 09/05/16 18:00 36.5 69 16 Room Air 09/05/16 17:51 70 15 Room Air 09/05/16 17:46 68 17 Room Air 09/05/16 17:39 69 15 Room Air 09/05/16 17:33 72 15 Room Air 09/05/16 17:28 84 19 96 Room Air 09/05/16 17:17 Room Air 09/05/16 17:15 78 44 96 Room Air 09/05/16 17:09 82 18 99 Room Air 09/05/16 16:56 36.2 79 24 123/52 100 Simple Mask 8 09/05/16 11:25 36.6 86 18 126/74 100 Room Air 09/05/16 10:23 83 16 149/89 100 Room Air 09/05/16 07:47 36.2 93 17 153/84 100 Room Air Intake and Output 09/04/16 09/05/16 09/06/16 00:00 00:00 00:00 Intake Total 600 ml Balance 600 ml Weight (Kilograms): 145.45 Height (Feet): 5 Height (Inches): 10 Test 09/05/16 09:50 09/05/16 10:23 09/05/16 11:00 White Blood Count 6.5th/mm3 (3.8-10.1) Red Blood Count 3.92mil/mm3 (4.40-5.80) Hemoglobin 10.8g/dL (13.8-17.2) Hematocrit 33.4% (41.0-50.0) Mean Corpuscular Volume 85.2fL (81-100) Mean Corpuscular Hemoglobin 27.6pg (27.0-35.0) Mean Corpuscular Hemoglobin Concent 32.3% (32.0-37.0) Red Cell Distribution Width 14.0% (12.3-15.4) Platelet Count 149bil/L (150-400) Neutrophils (%) (Auto) 67.8% (40-74) Lymphocytes (%) (Auto) 19.6% (14-46) Monocytes (%) (Auto) 9.6% (4-12) Eosinophils (%) (Auto) 2.6% (0-5) Basophils (%) (Auto) 0.2% (0-3) Prothrombin Time 10.2sec (8.1-12.5) Prothromb Time International Ratio 0.95ratio Sodium Level 138mEq/L (134-144) Potassium Level 3.9mEq/L (3.5-5.2) Chloride Level 100mEq/L (97-108) Carbon Dioxide Level 24mmol/L (18-29) Blood Urea Nitrogen 13mg/dL (6-24) Creatinine 0.61mg/dL (0.76-1.27) Estimat Glomerular Filtration Rate 152mL/min (>59) Glucose Level 147mg/dL (60-99) Calcium Level 8.9mg/dL (8.5-10.1) Total Bilirubin 0.5mg/dL (0.0-1.2) Aspartate Amino Transf (AST/SGOT) 54U/L (0-50) Alanine Aminotransferase (ALT/SGPT) 71U/L (0-44) Alkaline Phosphatase 81U/L (25-150) Total Protein 7.0g/dL (6.4-8.4) Albumin 3.7g/dL (3.4-5.0) Urine Color Dark yellow (YELLOW) Urine Appearance Clear (CLEAR,HAZY) Urine pH 6.0 (5.0-8.0) Urine Specific [place] 1.030 (1.003-1.035) Urine Protein Negativemg/dL (NEG,TRACE) Urine Glucose (UA) Negativemg/dL (NEGATIVE) Urine Ketones Negativemg/dL (NEGATIVE) Urine Occult Blood Negative (NEGATIVE) Urine Nitrite Negative (NEGATIVE) Urine Bilirubin Negative (NEGATIVE) Urine Urobilinogen Normalmg/dL (NORMAL) Urine Leukocyte Esterase Negative (NEGATIVE) Urine RBC 0-2/hpf (0-2) Urine WBC 0-5/hpf (0-5) Urine Epithelial Cells Occasional/hpf (NONE-MOD) Urine Crystals None seen (NONE SEEN) Urine Bacteria None/hpf (NONE-FEW) Urine Hyaline Casts Occasional/lpf (NONE) Urine Granular Casts None seen (NONE SEEN) Urine Waxy Casts None seen (NONE SEEN) Urine Red Blood Cell Casts None seen (NONE SEEN) Urine White Blood Cell Casts None seen (NONE SEEN) Urine Mucus Present (None Seen) Urine Trichomonas None seen (NONE SEEN) Urine Yeast None (NONE SEEN) Urinalysis Comment None Urine Culture Reflexed Not indicated Urine Opiates Screen Positive Urine Methadone Screen Negative Urine Barbiturates Screen Negative Urine Amphetamines Screen Positive Urine Benzodiazepines Screen Negative Urine Cocaine Metabolite Screen Negative Urine Cannabinoids Screen Negative Assessment/Plan Assessment/Plan A/ - 46 y/o male patient with hx of IVDU required Vancomycin therapy to empirically treat his recurrent cellulitis and abscess - Afebrile, WBC: 6.5, wound material sent to lab before abx started, due to failed to established iv access, Vancomycin 2G iv loading dose given @1800 09/05 , after received I&D - Wt: 145.45kg, ht: 178 cm, SCr: 0.61 ml/dL, est. clearance ~175 ml/min, BMI: 46, Vd ~ 80L, t1/2~6hrs P/ - Give Vancomycin 1.5G iv q8h. Trough level ordered before 4th dose @1930 on 09/06. Pharmacy will continue to follow and make necessary adjustment Thank you for consulting clinical pharmacy in the care of this patient James Hawk PharmD, [facility] Neptali Hawk Sep 06, 2016 04:29
--- NOTE | 2016-09-06 05:59 | NUR ---
AMA Patient decided to leave AMA. Went over risks of leaving with patient, paperwork signed. IJ d/c'd intact, pressure dressing applied. Dr. Gonzalez notified via telephone conversation. Security up to room to unlock belongings. Patient walked self off unit to meet ride.
--- NOTE | 2016-09-06 10:38 | PCM.DIMED ---
Discharge Instructions Date of Service Sep 06, 2016 Dates of Hospitalization Sep 05, 2016 at 09:58 Discharge Diagnosis Discharge Diagnosis # Right thigh and RUQ abdominal abscess s/p I&D, acute, poa # IV drug abuse, chronic # hep C infection , chronic #Obesity, chronic Diet Other (left AMA) Activity Other (left AMA) Call your provider Other (left AMA) Patient Instructions patient left AMA early this morning,RIJ TLC removed per RN Follow-up plan left AMA Jim Watts MD Sep 06, 2016 10:38
--- NOTE | 2016-09-06 10:42 | PCM.DC.MED ---
Discharge Summary Date of Service Sep 06, 2016 Dates of Hospitalization Date of Hospital Admission Sep 05, 2016 at 09:58 Date of Discharge: Sep 06, 2016 Providers: Admitting Physician: Jim Watts MD Primary Care Physician: [place] Attending Physician: Jim Watts MD Diagnosis at Time of Discharge Diagnosis at Time of Discharge # Right thigh and RUQ abdominal abscess s/p I&D, acute, poa # IV drug abuse, chronic # hep C infection , chronic #Obesity, chronic Procedures Invasive Procedures DATE OF SURGERY: 09/05/2016 SURGEON: Cecil Zhu MD NETWORK SYSTEMS ENGINEER: Martha Gee DO, resident one. ANESTHESIA: General. PREOPERATIVE DIAGNOSIS(ES): Right thigh and right chest wall abscesses. POSTOPERATIVE DIAGNOSIS(ES): Right thigh and right chest wall abscesses. PRINCIPAL PROCEDURE: Incision and drainage of right thigh and right chest wall abscesses. INDICATION FOR PROCEDURE: The patient is a 46-year-old male with IV drug abuse who has large subcu abscesses of the right thigh and right chest wall. PRINCIPAL FINDING: Successful I and D of both abscess. The right chest wall incision was 10 cm and the right thigh incision was 12 cm. PROCEDURE COURSE: The patient was brought to the operating table and underwent general endotracheal anesthesia. The patient was also provided with a right IJ central line. The patient was started on IV antibiotics. A time-out was performed. The patient's right chest wall and right thigh abscesses were then prepped and draped in the usual sterile fashion. Next, we started with the right chest wall abscess. Using a syringe, and using an 18-gauge needle, the abscess was aspirated and sent for cultures. The same thing was applied to the right thigh abscess and it was aspirated and sent for cultures. Next, a transverse incision was made over the right chest wall abscess and the incision was extended medially and laterally, and went down until the abscess cavity was unroofed. Hemostasis was verified using cautery. The subcutaneous tissue was probed both digitally and using a Angeli clamp. Until we were sure there were no undrained abscesses. The abscess cavity was irrigated with saline and hemostasis was controlled. The incision at the chest wall was 10 cm. Next, we turned our attention to the right thigh abscess and again using the scalpel a transverse incision was made. The abscess cavity was unroofed and we suctioned off all of the pus. The abscess cavity was probed also digitally and also using a Angeli clamp until we were sure there was no undrained abscess. There was some black subcu tar-appearing like tissue and this was excised and sent to Pathology. The wound cavity was irrigated with saline and hemostasis was controlled. The right thigh incision was 12 cm. Next, Kerlix soaked in half-strength Betadine was then packed into both cavities and then sterile dressing was applied. By the end of the procedure, needle counts and sponge counts were correct. The patient was then extubated and taken to the recovery room in stable satisfactory condition. A chest x-ray will be ordered in the recovery room. Cecil Zhu MD 09/05/16 3072 Report status: Draft Transcribed by: ZAC 09/05/16 6293 REPORT#: [id number] cc: Cecil Zhu MD; PCP, NO Brief History per HPI by me on 09/05/16 46 gentleman with past medical history of IV heroin abuse, recurrent cellulitis and abscess including MRSA requiring multiple hospitalizations, and hepatitis C presented to the ED complaining of right thigh and right upper quadrant abdominal wall painful swelling of 4 days. Admits injecting heroine to these sites recently. he has chronic bilateral lower extremity redness and swelling which he feels is at baseline. denies fever, chills, nausea, and vomiting. He expresses interest in rehab but currently uses heroin regularly, ~1g per use, with his last injection at 02:00 this morning. In the ED, he was afebrile and hypertension with a BP of 153/84 and a pulse of 93. SpO2 100% on room air with a RR of 17. No leukocytosis, hemoglobin is 10.8,, platelets 149, CMP unremarkable except slightly elevated transaminase Ed unable to place IV line in emergency room, surgery consulted. Scheduled for incision and drainage. IV line to be established by anesthesia in OR for IV antibiotics. Hospital Course 46 gentleman with past medical history of IV heroin abuse, recurrent cellulitis and abscess including MRSA requiring multiple hospitalizations, and hepatitis C presented to the ED complaining of right thigh and right upper quadrant abdominal wall painful swelling of 4 days # Right thigh and RUQ abdominal abscess, acute, poa -patient underwent I&D,RIJ TLC inserted and started on antibiotics.patient left AMA this am,TLC removed as per RN # IV drug abuse, chronic # hep C infection , chronic #Obesity, chronic patient left AMA today Exam Vital Signs (Last) Date Time Temp Pulse Resp B/P Pulse Ox O2 Delivery O2 Flow Rate FiO2 09/06/16 01:00 37.1 87 18 120/69 96 Room Air 09/05/16 16:56 8 Exam preop exam Gen. Obese patient is lying comfortably in hospital bed HEENT: Head is normocephalic atraumatic, Pupils equal and reactive, extraocular movements intact, Lungs clear to auscultation bilaterally Heart regular rate and rhythm without murmurs gallops or rubs Abdomen RUQ abdominal wall tender swelling, erythematous, hot to touch, slightly fluctuant 7x5 cm, Extremities right thigh tender swelling, erythematous, hot to touch, slightly fluctuant 7x8cm, bilateral leg erythema, nontender, not hot to touch Psych alert and oriented to person place and time Neuro cranial nerves II through XII are grossly intact Lymph: There is no lymphadenopathy appreciated in the cervical supra infraclavicular regions : no mayorga Test 09/05/16 09:50 09/05/16 10:23 09/05/16 11:00 White Blood Count 6.5th/mm3 (3.8-10.1) Red Blood Count 3.92mil/mm3 (4.40-5.80) Hemoglobin 10.8g/dL (13.8-17.2) Hematocrit 33.4% (41.0-50.0) Mean Corpuscular Volume 85.2fL (81-100) Mean Corpuscular Hemoglobin 27.6pg (27.0-35.0) Mean Corpuscular Hemoglobin Concent 32.3% (32.0-37.0) Red Cell Distribution Width 14.0% (12.3-15.4) Platelet Count 149bil/L (150-400) Neutrophils (%) (Auto) 67.8% (40-74) Lymphocytes (%) (Auto) 19.6% (14-46) Monocytes (%) (Auto) 9.6% (4-12) Eosinophils (%) (Auto) 2.6% (0-5) Basophils (%) (Auto) 0.2% (0-3) Prothrombin Time 10.2sec (8.1-12.5) Prothromb Time International Ratio 0.95ratio Sodium Level 138mEq/L (134-144) Potassium Level 3.9mEq/L (3.5-5.2) Chloride Level 100mEq/L (97-108) Carbon Dioxide Level 24mmol/L (18-29) Blood Urea Nitrogen 13mg/dL (6-24) Creatinine 0.61mg/dL (0.76-1.27) Estimat Glomerular Filtration Rate 152mL/min (>59) Glucose Level 147mg/dL (60-99) Calcium Level 8.9mg/dL (8.5-10.1) Total Bilirubin 0.5mg/dL (0.0-1.2) Aspartate Amino Transf (AST/SGOT) 54U/L (0-50) Alanine Aminotransferase (ALT/SGPT) 71U/L (0-44) Alkaline Phosphatase 81U/L (25-150) Total Protein 7.0g/dL (6.4-8.4) Albumin 3.7g/dL (3.4-5.0) Urine Color Dark yellow (YELLOW) Urine Appearance Clear (CLEAR,HAZY) Urine pH 6.0 (5.0-8.0) Urine Specific [place] 1.030 (1.003-1.035) Urine Protein Negativemg/dL (NEG,TRACE) Urine Glucose (UA) Negativemg/dL (NEGATIVE) Urine Ketones Negativemg/dL (NEGATIVE) Urine Occult Blood Negative (NEGATIVE) Urine Nitrite Negative (NEGATIVE) Urine Bilirubin Negative (NEGATIVE) Urine Urobilinogen Normalmg/dL (NORMAL) Urine Leukocyte Esterase Negative (NEGATIVE) Urine RBC 0-2/hpf (0-2) Urine WBC 0-5/hpf (0-5) Urine Epithelial Cells Occasional/hpf (NONE-MOD) Urine Crystals None seen (NONE SEEN) Urine Bacteria None/hpf (NONE-FEW) Urine Hyaline Casts Occasional/lpf (NONE) Urine Granular Casts None seen (NONE SEEN) Urine Waxy Casts None seen (NONE SEEN) Urine Red Blood Cell Casts None seen (NONE SEEN) Urine White Blood Cell Casts None seen (NONE SEEN) Urine Mucus Present (None Seen) Urine Trichomonas None seen (NONE SEEN) Urine Yeast None (NONE SEEN) Urinalysis Comment None Urine Culture Reflexed Not indicated Urine Opiates Screen Positive Urine Methadone Screen Negative Urine Barbiturates Screen Negative Urine Amphetamines Screen Positive Urine Benzodiazepines Screen Negative Urine Cocaine Metabolite Screen Negative Urine Cannabinoids Screen Negative Discharge Medications Discharge Medications Ibuprofen (Ibuprofen) 800 Mg Tablet 800 MG PO BID (Reported) Followup Plan Disposition: home ,AMA Follow-up plan left AMA Discharge Diet: Other (left AMA) Discharge Activity: Other (left AMA) Patient Instructions patient left AMA early this morning,RIJ TLC removed per Jim Cheek MD Sep 06, 2016 10:42
[2016-09-06] MEDS ORDERED: Vancomycin Serum Trough XX ONE (19:30)
--- NOTE | 2016-09-09 11:08 | PATH ---
SURGICAL PATHOLOGY Attending Physician:Cecil Zhu M.D. CASE STATUS: Signed Out PATIENT NAME: CRISTHIAN CHONG PID: [id number] : 1970 DATE COLLECTED:09/05/2016 00:00 SPECIMEN: Abscess CLINICAL HISTORY: 1). RIGHT CHEST ABSCESS FINAL DIAGNOSIS: 1.RIGHT CHEST ABSCESS: SOFT TISSUE WITH EXTENSIVE SEVERE ACUTE INFLAMMATION AND EXTENSIVE NECROSIS CONSISTENT WITH ABSCESS. Negative for malignancy and significant atypia. ICD10 code L03 GROSS DESCRIPTION: The specimen is received in one formalin filled container labeled with the patient's name, sublabeled "right chest abscess" and consists of 2 portions of tissue. The first consists of a peck-winters friable fragment of tissue which measures 2.0 x 1.0 x 0.6 CM. The specimen is inked blue. The specimen is serially sectioned into 4 pieces and entirely submitted in cassette A. The second piece consists of a dark red-brown extremely friable and fragmenting portion of tissue which measures 3.0 x 2.0 x 0.7 CM inked blue. The specimen is serially sectioned into 6 pieces and entirely submitted cassettes B., C., D. 09/06/2016 [facility] MICRO DESCRIPTION: See diagnosis. ICD-9 CODES: CPT CODES: 61358 Electronically Signed Out Issac Oshea MD [facility] [address], [place] [address] Technical component performed at [facility], [address] [place] [address] Ave[address], [place], [address]
== END 2016-09-06 05:58 | disposition left against medical advice (07) ==
LOC: SED 07:45 → OSC 09:58
PROVIDERS: ADMIT Internal Medicine; ATTEND Internal Medicine
DX: L02.415 Cutaneous abscess of right lower limb (principal); L02.213 Cutaneous abscess of chest wall; F11.20 Opioid dependence, uncomplicated; B18.2 Chronic viral hepatitis C; E66.9 Obesity, unspecified; Z86.14 Personal history of Methicillin resistant Staphylococcus aureus infection; F17.210 Nicotine dependence, cigarettes, uncomplicated
CPT/HCPCS: 21501; 27301; 36415; 71010; 80053; 81000; 81002; 85025; 85610; 87040; 87070; 87075; 87077; 87081; 87185; 87186; 87205; 88304; 96365; 96366; 96367; 99285; G0378; G0480; J0295; J1170; J2250; J2405; J2765; J3010; J3370; J7040; J7050; J7120

== ENCOUNTER 2016-11-20 22:00 | Emergency (ER) | payer OTHER ==
[~2016-11-20] VITALS: Ht 177.8 cm; Wt 136.4 kg
[~2016-11-20 22:00] MED LIST changes: -BUPR1FIL3 SL; -DALB500V IV; -HYDROmorphone 2 mg/mL Inj ONE; +IBUP800T28 PO
[2016-11-20 22:48] VITALS: BP 129/82; PULSE 89; RESP 20; O2SAT 98
[2016-11-20 23:55] LABS: BASOPHILS % (AUTO) 0.2 % (0-3); EOSINOPHILS % (AUTO) 2.7 % (0-5); MONOCYTES % (AUTO) 6.1 % (4-12); Mean Corpuscular Hemoglobin 26.9 pg (27.0-35.0); Mean Corpuscular Volume 81.5 fL (81-100); NEUTROPHILS % (AUTO) 64.1 % (40-74); Platelet Count 172 bil/L (150-400)
--- NOTE | 2016-11-21 00:11 | ED.REPORT ---
HPI-General Illness Date of Service Nov 21, 2016 ED Provider: Dr. Bowles Pt is a 46 y/o male w/ a hx of prior IV drug use, recurrent MRSA abscesses, Hep C, presenting to the ED c/o bilateral lower extremity numbness and weakness onset 5 days ago. He describes the numbness as an achy/heavy feeling which is causing him to be unable ambulate without assistance. He denies any recent trauma. When he stands, he experiences shooting pain from the left buttock down the entire left leg. He also reports a large amount of blood in all of his stools. He describes black clots in his stool as well. He experienced diarrhea for the first day of onset but this has resolved. He denies melena, fever, chills, CP, SOB, bowel or bladder incontinence. He was a previous heroin user and has a history of multiple MRSA infections with an admission for chest abscess a few months ago. He reports all of these are healing well. Nursing Notes Stated Complaint: BILATERAL LEG NUMBNESS,CANT WALK Chief Complaint: General Complaint Nursing Notes Reviewed: Yes ([employer] not reconciled) Allergies: Coded Allergies: Sulfa (Sulfonamide Antibiotics) (Verified Allergy, Unknown, 11/20/16) Scheduled Ibuprofen (Ibuprofen) 800 Mg Tablet 800 MG PO BID General Time Seen by MD: 00:10 Chief Complaint Other (numbness) Hx Obtained From: Patient Arrived By: Walk-in Sudden in Onset?: No Onset Occurred: 5 days ago Symptom Duration: Since onset Location: : Back Quality: Painful Severity: Current: Moderate Severity: Maximum: Moderate Similar Sx Previous: No Past Medical History Past Medical History Notes: PCP: None Admitted September 05-2016 for right thigh, right upper quadrant abdominal abscesses requiring incision and drainage, positive MRSA Past Medical History IVDU (heroin) h/o MRSA infected abscesses due to IVDU hepatitis C Obesity Reports: Morbid Obesity Past Surgical History Multiple incision and drainages Smoking History Current Every Day Smoker, Heavy Tobacco Smoker Social History Alcohol Use: Denies alcohol use Drug Use: IV drugs, Meth, Other Other Social History: Local resident 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 Physical Exam Vital Signs Vital Signs Date Time Temp Pulse Resp B/P Pulse Ox O2 Delivery O2 Flow Rate FiO2 11/20/16 22:48 36.4 89 20 129/82 98 Room Air Initial VS: Reviewed, Vital signs normal Head / Eyes: Atraumatic, Normocephalic, PERRL ENT: Mucous membranes moist, Conjunctiva normal, No scleral icterus Neck: Supple, Full range of motion Respiratory: Breath sounds normal, Clear to auscultation, No respiratory distress Cardiovascular: Regular rate & rhythm, Heart sounds normal, Intact distal pulses Abdomen / GI: Soft, Non-tender, No guarding, No rebound, No distention Extremities: Vascular intact, Neuro intact, No swelling, No tenderness Psychiatric: Mood/affect normal, Behavior normal, Normal thought content General/Constitutional: Awake, Alert, No acute distress, Cooperative, Not toxic appearing Not febrile Skin: Atraumatic, Color NL, No rash, Warm, Dry, Intact Track cordon throughout. Scars throughout No active areas of cellulitis or overt infection Neurologic: Oriented X3, Speech NL Able to stand and take steps without gross deficits in the department. Interpretation & Diagnostics Interpretation & Diagnostics: MRI lumbar spine: Impression: Multilevel degenerative changes as described above. Mild to moderate diffuse disc osteophyte complex with a 0.5 x 1.0 cm disc sequestration within padma posterior left aspect of the central spinal canal at L4-L5. Combined with bilateral facet joint hypertrophy, there is resulting severe central canal stenosis and tehcal sac compression. Moderate diffuse disc osteophyte complex and bilateral facet joint hypertrophy at L5-S1 noted, with a 0.5 x 0.7 1.3 cm disc sequestration within the left ventral aspect of the lumbar spinal canal more superiorly causing mild central canal stenosis. Transmitted to the ED by Kulwant Bland MD at 0201 Lab Results Interpretation Result Diagram: 11/21/16 0115 11/20/16 2350 Test 11/20/16 23:50 11/21/16 01:15 Sodium Level 137mEq/L (134-144) Potassium Level 4.8mEq/L (3.5-5.2) Chloride Level 98mEq/L (97-108) Carbon Dioxide Level 22mmol/L (18-29) Blood Urea Nitrogen 19mg/dL (6-24) Creatinine 0.75mg/dL (0.76-1.27) Estimat Glomerular Filtration Rate 120mL/min (>59) Glucose Level 154mg/dL (60-99) Calcium Level 9.7mg/dL (8.5-10.1) Total Bilirubin 0.9mg/dL (0.0-1.2) Aspartate Amino Transf (AST/SGOT) 68U/L (0-50) Alanine Aminotransferase (ALT/SGPT) 61U/L (0-44) Alkaline Phosphatase 117U/L (25-150) C-Reactive Protein 3.4mg/dL (0.0-0.5) Total Protein 8.4g/dL (6.4-8.4) Albumin 3.7g/dL (3.4-5.0) White Blood Count 6.1th/mm3 (3.8-10.1) Red Blood Count 4.62mil/mm3 (4.40-5.80) Hemoglobin 12.5g/dL (13.8-17.2) Hematocrit 38.4% (41.0-50.0) Mean Corpuscular Volume 83.1fL (81-100) Mean Corpuscular Hemoglobin 27.1pg (27.0-35.0) Mean Corpuscular Hemoglobin Concent 32.6% (32.0-37.0) Red Cell Distribution Width 14.8% (12.3-15.4) Platelet Count 164bil/L (150-400) Neutrophils (%) (Auto) 66.0% (40-74) Lymphocytes (%) (Auto) 24.2% (14-46) Monocytes (%) (Auto) 7.1% (4-12) Eosinophils (%) (Auto) 2.3% (0-5) Basophils (%) (Auto) 0.2% (0-3) Erythrocyte Sedimentation Rate 68mm/hr (0-15) Prothrombin Time 10.8sec (8.1-12.5) Prothromb Time International Ratio 1.01ratio Lab Results Interpretation: CBC normal CMP normal Sedimentation rate and CRP marginally elevated The cultures were unable to be obtained, patient very difficult to draw blood from Re-Eval/Medical Decision Med Decision/Clinical Course This is a 46-year-old male history of IVDA and recurrent MRSA presents complaining of 5 days some bilateral numbness in the legs, and some intermittent weakness. He is in bleeding today, he denies bowel or bladder dysfunction, denies fevers or symptoms. However the patient has multiple risk factors for possible epidural abscess. He is ambulating in the ED. I do not appreciate jalen focal deficits on exam, but given his risk factors, a workup was pursued. Attempts at obtaining an IV were unsuccessful, but lab was obtained, he does have mildly elevated sedimentation rate and CRP, although he has multiple examinations given recent superficial skin infections and abscesses. An MRI of the lumbar spine was obtained, which was negative for epidural abscess. Some areas of spinal stenosis and equated disc, but no findings to indicate emergent surgical intervention. Patient advised to continue to work on stopping using drugs. He is advised to follow up the PCP. He is ambulating, was explained has new or worsening symptoms he needs to return directly to the emergency department. Source of Hx: Old records Time of Eval: 02:30 Patient Status: Condition improved, Moderate relief, Pain improved Re-Evaluation/Progress Note: Pt rechecked. Informed pt of plan for treatment. Pt understands and agrees with plan for treatment. F/U instructions and RTER warnings given. All questions addressed. Counseled Regarding: Diagnosis, Lab results, Need for follow-up, When/why to return to ED Discharge & Departure Primary Impression: Sciatica Laterality: unspecified laterality Qualified Code: M54.30 - Sciatica, unspecified side Additional Impression: Heroin abuse Disposition: Home Discharge Condition All VS Reviewed: Yes Condition: Stable Additional Instructions: 1. You had an MRI tonight to evaluate for the possibility of a "epidural abscess" which is a type of infection that can occur with a higher risk than frequency after using IV drugs. I reviewed her MRI did not reveal any markers for an abscess or infection. You do have some spinal stenosis caused by disc sequestration at L4-5, there are no findings of an acute surgical emergency. 2. No heavy lifting. Other activities as tolerated. 3. You do need to follow up with a primary care provider. Call for an appointment. If symptoms are not improving with time, you may need further evalution. 4. If you have new or worsening symptoms (increasing weakness, bowel or bladder symptoms) or if you develop a fever - return directly to the emergency department. Referrals: NOPCP (PCP) Stephan Attestation Portions of this note were transcribed by Randal Bell. I, Dr. Bowles personally performed the history, physical exam and medical decision-making; I reviewed and confirmed the accuracy of the information in the transcribed note. Signed by Stephan No, 11/21/16 - 0030 Luciano Bowles MD Nov 21, 2016 00:11 RANDAL BELL Nov 21, 2016 00:18
[2016-11-21 01:19] LABS: BASOPHILS % (AUTO) 0.2 % (0-3); EOSINOPHILS % (AUTO) 2.3 % (0-5); MONOCYTES % (AUTO) 7.1 % (4-12); Mean Corpuscular Hemoglobin 27.1 pg (27.0-35.0); Mean Corpuscular Volume 83.1 fL (81-100); Platelet Count 164 bil/L (150-400)
[2016-11-21 01:42] LABS: INR 1.01 ratio
[2016-11-21 01:49] LABS: ERYTHROCYTE SEDIMENTATION RATE 68 mm/hr (0-15)
[2016-11-21 02:54] VITALS: BP 155/92; PULSE 95; RESP 18; O2SAT 99
--- NOTE | 2016-11-21 09:10 | DRSVH ---
PROCEDURE: MRI LUMBAR SPINE WITHOUT CONTRAST ([id number]) INDICATIONS: Bilateral sciatica, difficulty in relating, IVDA, TECHNIQUE: Noncontrast sagittal T1 spin echo and T2 fast echo, sagittal STIR, axial T1 and T2 fast spin echo thr ough the lumbar spine. In cases with scoliosis, additional coronal T2 fast spin echo may be performe d. COMPARISON: None. FINDINGS: Image quality: Limited by patient body habitus. Alignment and Curvature: There is normal bony alignment and curvature are. Bone Marrow: Reactive endplate change is noted adjacent to the L2-L3, L3-L4 and L5-S1 discs. No acute vertebral body compression fractures. Spinal Cord: Conus medullaris terminates at the T12 level. Visualized cord demonstrates normal sign al and size. Paraspinous Soft Tissues: No paravertebral masses. L1-L2: Loss of disc signal and height. Mild, diffuse disc bulge. No central stenosis. Mild bilateral neural foraminal narrowing secondary to disc disease. There is a focal high intensity zone in the rig ht foraminal annulus compatible with a fissure. L2-L3: Loss of disc signal and height. Moderate, diffuse disc bulge. Mild facet and mild ligamentum f lavum hypertrophy. Moderate narrowing of the central canal secondary to disc disease and posterior el ement hypertrophy. Moderate bilateral neural foraminal narrowing secondary to disc and facet disease. Focal high intensity zones noted in the annulus compatible with fissures. L3-L4: Loss of the signal and slight loss of disc height. Moderate, diffuse disc bulge. Moderate face t and mild ligamentum flavum hypertrophy. Severe narrowing of the central canal secondary to disc dis ease and posterior element hypertrophy. Moderate right and mild left neural foraminal narrowing secon ge[place]ina to disc and facet disease. L4-L5: Loss of disc signal. Mild, diffuse disc bulge. Complex left central disc extrusion with extrud ed disc material extending superiorly to a L4 infrapedicular location and inferiorly to a L5 supraped icular location. Severe facet and mild ligamentum flavum hypertrophy. Severe central stenosis seconda ry to disc disease and posterior element hypertrophy. Moderate bilateral neural foraminal narrowing s econdary to disc and facet disease. L5-S1: Loss of the signal. Mild, diffuse disc bulge. Moderate bilateral facet hypertrophy. No central stenosis. Severe bilateral neural foraminal narrowing secondary to disc and facet disease with sligh t flattening deformity exiting L5 nerve roots bilaterally. IMPRESSION: 1. Multilevel degenerative disc disease. 2. Multilevel facet arthropathy. 3. Severe L3-L4 and L4-L5 the central canal stenosis. Moderate L2-L3 central canal narrowing. 4. Mild bilateral L1-L2 neural foraminal narrowing. Moderate bilateral L2-L3 and L4-L5 neural foramin al narrowing. Moderate right and mild left L3-L4 neural foraminal narrowing. Severe bilateral L5-S1 n eural foraminal narrowing. 5. L4-L5 left central disc extrusion which contributes to severe L4-L5 central canal stenosis and imp inges on traversing nerve roots of cauda equina. 6. Flattening deformity exiting L5 nerve roots bilaterally secondary to bilateral L5-S1 neural forami nal narrowing. Dictated by: Tangela Rocha MD, PhD on 11/21/2016 at 9:00 Approved by: Tangela Rocha MD, PhD on 11/21/2016 at 9:08
== END 2016-11-21 02:52 | disposition home or self-care (01) ==
LOC: SED 22:00
DX: M54.30 Sciatica, unspecified side (principal); F11.10 Opioid abuse, uncomplicated; K92.1 Melena; R19.7 Diarrhea, unspecified; F17.200 Nicotine dependence, unspecified, uncomplicated; Z88.2 Allergy status to sulfonamides; Z86.19 Personal history of other infectious and parasitic diseases; Z86.14 Personal history of Methicillin resistant Staphylococcus aureus infection

== ENCOUNTER 2017-01-12 01:54 | Emergency (ER) | payer OTHER ==
[~2017-01-12] VITALS: Ht 175.3 cm; Wt 147.7 kg
[2017-01-12 02:03] VITALS: BP 159/76; PULSE 102; RESP 22; O2SAT 97
--- NOTE | 2017-01-12 02:11 | ED.REPORT ---
HPI- Male Date of Service Jan 12, 2017 ED Provider: Dr. Emmanuel Corey MD A 46 year old male with a history of prior IV drug use, recurrent MRSA abscesses , Hepatitis C presents to the ED with bilateral testicular swelling that first appeared a few days ago. The edema in his testicles has migrated throughout the inguinal and scrotal area. The rash and blisters have become increasingly worse since initial onset. He reports a recent spinal surgery at [facility]. The patient has been inactive for the past few weeks and he endorses SOB with exertion. Nursing Notes Stated Complaint: SWOLLEN TESTICLES Chief Complaint: General Complaint Nursing Notes Reviewed: Yes Allergies: Coded Allergies: Sulfa (Sulfonamide Antibiotics) (Verified Allergy, Unknown, 11/20/16) Scheduled Clindamycin (Clindamycin) 300 Mg Capsule 300 MG PO QID Furosemide (Lasix) 40 Mg Tablet 40 MG PO BID Ibuprofen (Ibuprofen) 800 Mg Tablet 800 MG PO BID Terbinafine Cream (Terbinafine Cream) 30 Gm Cream..g. 1 APPLIC TOPICAL BID General Time Seen by MD: 02:10 Chief Complaint Testicle swollen right, Testicle swollen left Hx Obtained From: Patient Arrived By: Walk-in Onset Occurred: 3 days ago Symptom Duration: Since onset Associated with: Reports: Scrotal swelling Pertinent Negative: Pt denies other symptoms Recent Healthcare: No recent hospitalization, Recent doctor visit Past Medical History Past Medical History Notes: PCP: None Admitted September 05-2016 for right thigh, right upper quadrant abdominal abscesses requiring incision and drainage, positive MRSA Past Medical History IVDU (heroin) h/o MRSA infected abscesses due to IVDU hepatitis C Obesity Reports: Morbid Obesity Past Surgical History Multiple incision and drainages Spinal surgery - [facility] Smoking History Current Every Day Smoker, Heavy Tobacco Smoker Social History Alcohol Use: Denies alcohol use Drug Use: IV drugs, Meth, Other Other Social History: Local resident 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 Respiratory: Reports: Shortness of breath (with exertion) Physical Exam Initial Vital Signs Vital Signs (First) Date Time Temp Pulse Resp B/P Pulse Ox O2 Delivery O2 Flow Rate FiO2 01/12/17 02:03 36.9 102 22 159/76 97 Room Air Initial VS: Reviewed Head / Eyes: Atraumatic, Normocephalic, PERRL Neck: Supple, Non-tender, Full range of motion Skin: Warm, Dry, No cyanosis Neurologic: Alert, Oriented, Nonfocal Psychiatric: Mood/affect normal, Behavior normal, Normal thought content Male Genitourinary: Atraumatic Testes / Epidid / Scrotum: Positive: Scrotum swollen, Testis enlarged L, Testis enlarged R MALE : Blisters and ulcers draining serous fluid present Testicles patchy and redness bilaterally. No coral florescence bacteria present General/Constitutional: Awake, Alert, No acute distress Abdomen: Atraumatic, Soft, Non-tender Respiratory / Chest: Atraumatic, Breath sounds NL, Breath sounds = bilat, No respiratory distress Cardiovascular: Heart rate NL, Regular rhythm, Heart sounds NL Upper Extremity / MS: Atraumatic, Neurologic intact, Vascular intact Lower Extremity / Pelvis / MS: Atraumatic, Neurologic intact, Vascular intact LOWER EXTREMITIES: Bilateral swelling and erythema to LE. Blisters and ulcers draining serous fluid present LE patchy and redness bilaterally. Interpretation & Diagnostics Lab Results Interpretation Result Diagram: 01/12/17 0340 01/12/17 0325 Test 01/12/17 03:25 01/12/17 03:40 Prothrombin Time 9.9sec (8.1-12.5) Prothromb Time International Ratio 0.93ratio Activated Partial Thromboplast Time 23.6sec (22.8-33.0) Sodium Level 138mEq/L (134-144) Potassium Level 4.3mEq/L (3.5-5.2) Chloride Level 99mEq/L (97-108) Carbon Dioxide Level 22mmol/L (18-29) Blood Urea Nitrogen 15mg/dL (6-24) Creatinine 0.67mg/dL (0.76-1.27) Estimat Glomerular Filtration Rate 136mL/min (>59) Glucose Level 137mg/dL (60-99) Calcium Level 9.1mg/dL (8.5-10.1) Magnesium Level 1.9mg/dL (1.6-2.6) Total Bilirubin 0.5mg/dL (0.0-1.2) Aspartate Amino Transf (AST/SGOT) 51U/L (0-50) Alanine Aminotransferase (ALT/SGPT) 47U/L (0-44) Alkaline Phosphatase 88U/L (25-150) Pro-B-Type Natriuretic Peptide 39.83pg/mL (0-121) Total Protein 7.4g/dL (6.4-8.4) Albumin 3.3g/dL (3.4-5.0) Hold Dhillon Top Tube Received (Received) White Blood Count 7.0th/mm3 (3.8-10.1) Red Blood Count 3.62mil/mm3 (4.40-5.80) Hemoglobin 9.6g/dL (13.8-17.2) Hematocrit 29.6% (41.0-50.0) Mean Corpuscular Volume 81.8fL (81-100) Mean Corpuscular Hemoglobin 26.5pg (27.0-35.0) Mean Corpuscular Hemoglobin Concent 32.4% (32.0-37.0) Red Cell Distribution Width 16.4% (12.3-15.4) Platelet Count 215bil/L (150-400) Neutrophils (%) (Auto) 67% (40-74) Lymphocytes (%) (Auto) 21% (14-46) Monocytes (%) (Auto) 5% (4-12) Eosinophils (%) (Auto) 5% (0-5) Basophils (%) (Auto) 0% (0-3) Band Neutrophils % 2% (1-5) ECG Interpretation ECG Interpretation: Sinus Rhythm Rate 95 Time: 02:40 Interpreted by: ED physician X-Ray Chest Interpretation Chest Xray Interpretation: No acute abnormalities Interpretation / Wet Read by: Wet read ED physician Re-Eval/Medical Decision Med Decision/Clinical Course 46-year-old with history of IV drug abuse presents with anasarca up to his mid abdomen. He has resulting blistering and erythema of his legs with some ulceration and developing cellulitis. He has a history of MRSA. Legs no will require compressive hose. Will begin with Unna boot is a moist dressing and compressive device. Antibiotics begun his clindamycin orally. He has significant intertrigo which we will address with Lamisil AT cream. Follow up with PCP. Re-Evaluation/Progress #1: Time of Eval: 04:04 Patient Status: Condition improved Re-Evaluation/Progress Note: Single Prolene stitch is removed from the anterior portion of the spine. Patient tolerates the procedure well. Re-Evaluation/Progress #2: Time of Eval: 05:07 Patient Status: Condition improved Re-Evaluation/Progress Note: Patient is re-evaluated. Unna Boot is applied. Discussed lab results and X-ray results with the patient. All questions about the treatment plan are addressed. The patient understands and with the intended treatment plan to discharge with Clindamycin. Counseled Regarding: Diagnosis, Lab results, Need for follow-up, When/why to return to ED Discharge & Departure Impression: Primary Impression: Cellulitis Site of cellulitis: extremity Site of cellulitis of extremity: lower extremity Laterality: unspecified laterality Qualified Code: L03.119 - Cellulitis of unspecified part of limb Additional Impressions: Anasarca Intertrigo MRSA (methicillin resistant Staphylococcus aureus) Opioid dependence Disposition: Home Discharge Condition All VS Reviewed: Yes Condition: Improved Patient Instructions: Anemia (ED), Cellulitis (ED), Edema (ED), Unna Boot (ED) Additional Instructions: clindamycin four times daily for ten days. Unna boot should be changed at least weekly for the next 3-4 weeks. You can do that at the wound center. Follow[facility]up at [facility] for ongoing care. Call them tomorrow. Begin terbinafine cream twice daily, followed by talcum powder. Goldbond provides some anesthesia and drying. Begin Lasix 40 mg morning and at lunchtime. Elevate your legs whenever possible, above the level of the heart. Return if any immediate issues, particularly worsening swelling, fever, or other new symptoms of concern. Referrals: NOPCP (PCP) [facility] Stephan Attestation Portions of this note were transcribed by Lima Alfred. I, Dr. Corey personally performed the history, physical exam and medical decision-making; I reviewed and confirmed the accuracy of the information in the transcribed note. Signed by: Stephan Heredia, 01/12/17 0533. Emmanuel Corey MD Jan 12, 2017 02:10 LIMA ALFRED Jan 12, 2017 02:17
[2017-01-12 03:47] LABS: Mean Corpuscular Hemoglobin 26.5 pg (27.0-35.0); Mean Corpuscular Volume 81.8 fL (81-100); Platelet Count 215 bil/L (150-400)
[2017-01-12 03:59] LABS: INR 0.93 ratio
[2017-01-12 04:15] LABS: Magnesium 1.9 mg/dL (1.6-2.6)
[2017-01-12 04:23] LABS: BASOPHILS % (AUTO) 0 % (0-3); EOSINOPHILS % (AUTO) 5 % (0-5); MONOCYTES % (AUTO) 5 % (4-12); NEUTROPHILS % (AUTO) 67 % (40-74)
[2017-01-12 04:41] VITALS: BP 146/87; PULSE 94; RESP 19; O2SAT 99
[2017-01-12] MEDS ORDERED: TERB30CR15 TOPICAL (05:30)
[2017-01-12] MEDS ORDERED: FURO-128 PO (05:30)
[2017-01-12] MEDS ORDERED: CLIN-78 PO (05:30)
[2017-01-12 05:48] VITALS: BP 133/71; PULSE 77; RESP 18; O2SAT 94
--- NOTE | 2017-01-12 09:50 | DRSVH ---
PROCEDURE: X-RAY CHEST ONE VIEW, PORTABLE ([id number]) INDICATIONS: anasarca TECHNIQUE: One view of the chest was acquired. COMPARISON: [facility], CR, XR CHEST 1VW (PORTABLE), 09/05/2016, 16:43. FINDINGS: Surgical changes and devices: None. Lungs and pleura: No pleural effusions or pneumothorax. Lungs are clear. Mediastinum: Mediastinal contours appear normal. Heart size is normal. Bones and chest wall: No suspicious bony lesions. Overlying soft tissues appear unremarkable. IMPRESSION: No acute cardiopulmonary disease. Dictated by: Arturo Wilson [facility] Interpreted: Russel Palmer MD on 01/12/2017 at 9:49 Transcribed by: YASMIN on 01/12/2017 at 9:49 Approved by: Russel Palmer M.D. on 01/12/2017 at 11:52
== END 2017-01-12 05:49 | disposition home or self-care (01) ==
LOC: SED 01:54
DX: L03.115 Cellulitis of right lower limb (principal); L03.116 Cellulitis of left lower limb; R60.1 Generalized edema; L30.4 Erythema intertrigo; A49.02 Methicillin resistant Staphylococcus aureus infection, unspecified site; F11.20 Opioid dependence, uncomplicated; F17.200 Nicotine dependence, unspecified, uncomplicated; Z88.2 Allergy status to sulfonamides

== ENCOUNTER 2017-01-16 05:29 | Inpatient (IN) | payer OTHER ==
[~2017-01-16] VITALS: Ht 177.8 cm; Wt 169.9 kg
[~2017-01-16 05:29] MED LIST changes: +CLIN-78 PO; +FURO-128 PO; +TERB30CR15 TOPICAL
[2017-01-16 05:42] VITALS: BP 162/92; PULSE 101; RESP 16; O2SAT 100
--- NOTE | 2017-01-16 06:05 | ED.REPORT ---
HPI-General Illness Date of Service Jan 16, 2017 ED Provider: Oracio Lemons DO Patient is a 46 year old male with a hx of Hep C, IV drug use, and MRSA abscesses who presents to the ED complaining of worsening testicular swelling onset 4 days ago. He was seen in the department 2 days ago and discharged with a 10 day course of Clindamycin. He believes that his swelling has increased by about a third in the last 12 hours. Associated symptoms include leg swelling, lower abdominal swelling, and testicular redness. He denies rectal pain, fever, chills, vomiting, or any other symptoms. He is still using IV drugs currently. Nursing Notes Stated Complaint: SWOLLEN TESTICLES Chief Complaint: Male Abdominal Pain Nursing Notes Reviewed: Yes Allergies: Coded Allergies: Sulfa (Sulfonamide Antibiotics) (Verified Allergy, Unknown, 01/16/17) Scheduled Clindamycin (Clindamycin) 300 Mg Capsule 300 MG PO QID Furosemide (Lasix) 40 Mg Tablet 40 MG PO BID Ibuprofen (Ibuprofen) 800 Mg Tablet 800 MG PO BID Terbinafine Cream (Terbinafine Cream) 30 Gm Cream..g. 1 APPLIC TOPICAL BID General Time Seen by MD: 06:00 Chief Complaint Other (Testicular swelling ) Hx Obtained From: Patient Arrived By: Walk-in Sudden in Onset?: Yes Onset Occurred: 4 days ago Symptom Duration: Since onset Recent Healthcare: Recent doctor visit Similar Sx Previous: Yes Past Medical History Past Medical History Notes: PCP: None Admitted September 05-2016 for right thigh, right upper quadrant abdominal abscesses requiring incision and drainage, positive MRSA Past Medical History IVDU (heroin) h/o MRSA infected abscesses due to IVDU hepatitis C Obesity Reports: Morbid Obesity Past Surgical History Multiple incision and drainages Spinal surgery - [facility] Smoking History Current Every Day Smoker, Heavy Tobacco Smoker Social History Alcohol Use: Denies alcohol use Drug Use: IV drugs, Meth, Other Other Social History: Local resident 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 Physical Exam Vital Signs Vital Signs Date Time Temp Pulse Resp B/P Pulse Ox O2 Delivery O2 Flow Rate FiO2 01/16/17 05:42 37.1 101 16 162/92 100 Room Air Initial VS: Reviewed, Vital signs abnormal Head / Eyes: Atraumatic, Normocephalic Neck: Full range of motion Respiratory: No respiratory distress Skin: Warm, Dry Neurologic: Alert, Oriented, Nonfocal Psychiatric: Mood/affect normal, Behavior normal, Normal thought content General/Constitutional: Awake, Alert Appearance / Presentation: Positive: Obese, morbidly Lower Ext Edema: Positive: Bilateral 3+, Pitting Abdomen: Soft Cellulitis tracking up to lower abdomen Lower Extremity / Pelvis / MS: No deformity Drained abscess on L thigh Testes / Epidid / Scrotum: Positive: Scrotum swollen scrotal pitting edema with cellulitis and crusting of skin. Tender to palpation. No subcutaneous crepitus Interpretation & Diagnostics ECG Interpretation ECG Interpretation: Sinus rate 97 no acute abnormalities Time: 06:24 Interpreted by: ED physician Re-Eval/Medical Decision Med Decision/Clinical Course Patient presents with worsening scrotal cellulitis with tracking to the lower abdomen despite being on clindamycin. Known recent history of IV drug abuse. Patient understands that he needs to be admitted however is insistent on leaving prior to having more diagnostic evaluation done. He will be leaving AGAINST MEDICAL ADVICE. Patient is recommended to return as soon as possible. Time of Eval: 06:25 Re-Evaluation/Progress Note: Patient would like to leave. Discussed dangers of leaving AMA. Patient understands risks. Counseled Regarding: Diagnosis, Need for follow-up Discharge & Departure Primary Impression: Cellulitis of scrotum Disposition: AGAINST MEDICAL ADVICE Discharge Condition All VS Reviewed: Yes Condition: Stable Additional Instructions: Your infection of your scrotum is getting worse. You will need to be admitted to the hospital however you wanted to go home. You are leaving AGAINST MEDICAL ADVICE. Return to the ER as soon as possible. Referrals: NOPCP (PCP) Scribe Attestation Portions of this note were transcribed by Shahnaz Dupree. I, Dr. Lemons personally performed the history, physical exam and medical decision-making; I reviewed and confirmed the accuracy of the information in the transcribed note. Oracio Lemons DO Jan 16, 2017 06:05 SHAHNAZ DUPREE Jan 16, 2017 06:15
[2017-01-16] MEDS ORDERED: Vancomycin Dose per Pharmacist XX ONE (06:15)
[2017-01-16] MEDS ORDERED: 0.9% Sodium Chloride 1,000 ML IV ONE (06:15)
[2017-01-16] MEDS ORDERED: Piperacillin-Tazo 3.375 Gm Inj 3.375 GM in Dextrose 5% Minibag Plus 50 ML IV ONE (06:15)
[2017-01-16] MEDS ORDERED: Vancomycin Inj 2,000 MG in 0.9% Sodium Chloride 500 ML IV ONE (06:30)
[2017-01-16 08:30] LABS: BASOPHILS % (AUTO) 0.2 % (0-3); EOSINOPHILS % (AUTO) 4.8 % (0-5); MONOCYTES % (AUTO) 6.5 % (4-12); Mean Corpuscular Hemoglobin 26.2 pg (27.0-35.0); NEUTROPHILS % (AUTO) 65.1 % (40-74); Platelet Count 127 bil/L (150-400)
[2017-01-16 08:53] LABS: ERYTHROCYTE SEDIMENTATION RATE 66 mm/hr (0-15)
[2017-01-16] MEDS ORDERED: Sodium Chloride LOK Flush 10 mL Syringe IVFLUSH PRN ×2 (09:00)
[2017-01-16 09:34] LABS: Magnesium 1.7 mg/dL (1.6-2.6)
[2017-01-16] MEDS ORDERED: FURO40TA4 PO (09:59)
--- NOTE | 2017-01-16 10:29 | DRSVH ---
PROCEDURE: US TESTICULAR SONOGRAM WITH DOPPLER INDICATIONS: swelling, cellulitis, concern for deep infection TECHNIQUE: Real-time scanning was performed of the scrotum and testicles, with image documentation. Color and p ulse Doppler interrogation was performed of both testicles. COMPARISON: None. FINDINGS: Right: Testicle is normal in size at 3.0 x 2.9 x 4.2 cm, and homogenous in echotexture. Epididymis is normal in overall size and morphology. No hydrocele or varicoceles. Overlying scrotal skin is ma rkedly abnormal in thickness, measuring up to 4-8 cm in thickness, contiguous with the left hemiscrot um. Left: Testicle is normal in size at 3.0 x 2.6 x 4.0 cm, and homogeneous in echotexture. Epididymis is normal in overall size and morphology. No hydrocele or varicoceles. Overlying scrotal skin is al so seen to be markedly abnormal in thickness to the same degree as that seen on the right. Doppler: Color and pulse Doppler demonstrate normal and symmetric arterial flow in both testicles. IMPRESSION: Marked and soft tissue swelling over the entire hemiscrotum on the right and left, with h yperemia and yet no evidence for abnormal echotexture of the testicles. The appearance is most consi stent with cellulitis. 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 CT scanning is scheduled, which provides a more accurate method for detection of gas in the soft tissues. Dictated by: Russel Palmer M.D. on 01/16/2017 at 10:20 Approved by: Russel Palmer M.D. on 01/16/2017 at 10:26
--- NOTE | 2017-01-16 13:13 | DRSVH ---
PROCEDURE: CT ABDOMEN AND PELVIS WITH CONTRAST ([id number]) INDICATIONS: infection of perineum and lower abd wall, IVDA TECHNIQUE: After the administration of intravenous contrast, 5 mm thick sections acquired from the diaphragm to the symphysis. 5 mm coronal and sagittal reformats were acquired. For radiation dose reduction, the following was used: automated exposure control, adjustment of mA and/or kV according to patient siz e. COMPARISON: None. FINDINGS: Image quality: Excellent. ABDOMEN: Lung bases: Lung bases are clear. Heart size is normal. Solid organs: Liver and spleen are normal in size and enhancement. Gallbladder contains sludge and a calcified gallstone but does not appear inflamed. Biliary system is non dilated. Pancreas enhance s normally. No adrenal nodules. Kidneys demonstrate normal size and enhancement, without hydronephr osis. Peritoneum and bowel: Bowel loops demonstrate normal wall thickness and caliber. No free fluid or a ir. Nodes and vessels: No retroperitoneal or mesenteric adenopathy by size criteria. Aorta and inferior vena cava are normal in size. Miscellaneous: No ventral hernias. Edema tracks along the lateral body sidewalls symmetrically with out gas in this area of apparent subcutaneous fat edema and cutaneous thickening. PELVIS: Genitourinary: Bladder wall thickness is normal. Pronounced wall thickening, without gas in the sof t tissues. Prominent adjacent edema tracks cephalad along the pelvic sidewalls and caudad into the u pper thighs bilaterally to these imaging margin. No gas in the soft tissues is found. Miscellaneous: No inguinal hernias or adenopathy. Bones: No suspicious bony lesions. No vertebral body compression fractures. IMPRESSION: Cellulitis pattern, pronounced at the scrotum, without gas in the soft tissues. Gallston es and sludge within the gallbladder which does not show evidence of acute cholecystitis. Dictated by: Russel Palmer M.D. on 01/16/2017 at 13:07 Approved by: Russel Palmer M.D. on 01/16/2017 at 13:10
--- NOTE | 2017-01-16 13:15 | DRSVH ---
PROCEDURE: X-RAY PICC LINE PLACEMENT BY NURSE ([id number]) INDICATIONS: iv access COMPARISON: [facility], , PICC LINE PLACE BY NURSE (IVONNE), 12/10/2014, 18:55. FINDINGS: PICC was placed by the intravenous therapy team from the left lside. Fluoroscopic spot fi lm demonstrates tip of PICC in the distal SVC. IMPRESSION: Tip of PICC lies within the distal SVC. Dictated by: Russel Palmer M.D. on 01/16/2017 at 13:11 Approved by: Russel Palmer M.D. on 01/16/2017 at 13:13
[2017-01-16] MEDS ORDERED: HYDROmorphone 1 mg/mL Inj IVPUSH ONE (13:20)
[2017-01-16] MEDS: Vancomycin Dose per Pharmacist XX SCH (13:55)
[2017-01-16] MEDS ORDERED: Polyethylene Glycol (PEG) 17 Gm Powder PO PRN (13:55)
[2017-01-16] MEDS ORDERED: Alum-Mag Hydrox-Simeth 30 mL Suspension PO PRN (13:55)
[2017-01-16] MEDS ORDERED: Ondansetron 2 mg/mL 2 mL Inj IVPUSH PRN (13:55)
[2017-01-16 14:02] VITALS: BP 120/70; PULSE 80; RESP 11; O2SAT 96
[2017-01-16] MEDS ORDERED: Meropenem Inj 2,000 MG in 0.9% Sodium Chloride 100 ML IV ONE (14:30)
--- NOTE | 2017-01-16 14:32 | PCM.CONPHA ---
Subjective Date of Service: Jan 16, 2017 Reason for Pharmacy Consult: Vancomycin Dosing Objective Vital Signs Date Time Temp Pulse Resp B/P Pulse Ox O2 Delivery O2 Flow Rate FiO2 01/16/17 05:42 37.1 101 16 162/92 100 Room Air Weight (Kilograms): 147.73 Height (Feet): 5 Height (Inches): 10 Test 01/16/17 08:20 White Blood Count 5.9th/mm3 (3.8-10.1) Red Blood Count 3.70mil/mm3 (4.40-5.80) Hemoglobin 9.7g/dL (13.8-17.2) Hematocrit 30.7% (41.0-50.0) Mean Corpuscular Volume 83.0fL (81-100) Mean Corpuscular Hemoglobin 26.2pg (27.0-35.0) Mean Corpuscular Hemoglobin Concent 31.6% (32.0-37.0) Red Cell Distribution Width 16.2% (12.3-15.4) Platelet Count 127bil/L (150-400) Neutrophils (%) (Auto) 65.1% (40-74) Lymphocytes (%) (Auto) 22.9% (14-46) Monocytes (%) (Auto) 6.5% (4-12) Eosinophils (%) (Auto) 4.8% (0-5) Basophils (%) (Auto) 0.2% (0-3) Erythrocyte Sedimentation Rate 66mm/hr (0-15) Sodium Level 139mEq/L (134-144) Potassium Level 4.2mEq/L (3.5-5.2) Chloride Level 98mEq/L (97-108) Carbon Dioxide Level 25mmol/L (18-29) Blood Urea Nitrogen 17mg/dL (6-24) Creatinine 0.75mg/dL (0.76-1.27) Estimat Glomerular Filtration Rate 120mL/min (>59) Glucose Level 117mg/dL (60-99) Lactic Acid Level 1.1mmol/L (0.4-2.0) Calcium Level 9.1mg/dL (8.5-10.1) Magnesium Level 1.7mg/dL (1.6-2.6) Total Bilirubin 0.4mg/dL (0.0-1.2) Aspartate Amino Transf (AST/SGOT) 44U/L (0-50) Alanine Aminotransferase (ALT/SGPT) 36U/L (0-44) Alkaline Phosphatase 86U/L (25-150) Pro-B-Type Natriuretic Peptide 42.96pg/mL (0-121) Total Protein 7.2g/dL (6.4-8.4) Albumin 3.3g/dL (3.4-5.0) Procalcitonin 0.12ng/mL (0.00-0.08) Assessment/Plan Assessment/Plan Pt is a 46yo male with apparent testicular cellulitis to start IV vancomycin and IV meropenem. Ht, wt and labs as above. Pt rec'd a vanco IV 2gm loading dose in ED. Will give vanco 1.75gm IV q12h and check a trough prior to the 5th dose. Goal vanco trough = 10-15. MRSA swab is pending. Pharmacy will follow this pt's IV vanco therapy and make adjustments as needed. Lu Gama PharmD Jan 16, 2017 14:32
[2017-01-16 16:14] VITALS: BP 152/82; PULSE 77; RESP 18; O2SAT 93
--- NOTE | 2017-01-16 16:51 | NUR ---
Wound Note 46 yo male, admitted IV drug user admitted with cellulitis of testicles. Presents with old abscess at his left anterior thigh 3 cm x 2 cm x 1.2 cm, this was cleaned with scalpel and hydrogen peroxide and redressed with hydrogel and mepilex dressing, this can be changed by nursing bid. Patient also presents with bilateral LE edema and multiple small noninfected ulcers at both calves each less than a cm in diameter, these wrer cleaned and legs were wrapped with unna boots, kerlix and coban. Appt made for follow up at the wound center on Thursday of next week. No ulcerations noted at testicles.
[2017-01-16] MEDS: 0.9% Sodium Chloride 1,000 ML IV SCH (16:57)
[2017-01-16] MEDS: HYDROcodone-APAP 5-325 mg Tablet PO PRN ×2 (16:59→21:59)
--- NOTE | 2017-01-16 17:30 | NUR ---
Patient arrived to [facility]: Patient arrived to [facility] from the ER at 1430. Patient has a 2 lumen Picc line in his Left upper arm. Patient stated that he was not having pain upon his arrival to [facility] .. Patient spoke with Dr Beltran. Patient was oriented to his room caregivers and call light. He ordered his lunch and dinner. His IV antibiotics were administered as ordered and his IV fluids were started. Patients scrotum is severely enlarged and engulfs his penis. Patient stated that he is able to urinate by hovering over the toilet. Patient stated that he wishes to "Get Well" . Patient is cooperative with care and using his call light for his needs. PRN pain meds were given later at patients request for scrotal pain of 7/10. Frequent rounding in place for patient .
[2017-01-16 17:33] VITALS: BP 168/85; PULSE 90; RESP 18; O2SAT 99
[2017-01-16] MEDS: HYDROmorphone 0.5 mg/0.5 mL iSecure Syringe IVPUSH PRN (19:49)
--- NOTE | 2017-01-16 19:50 | PCM.HPMED ---
Subjective Date of Service Jan 16, 2017 Primary Provider: Admitting Physician: Emmanuel Negron MD Primary Care Physician: Jeremiah Attending Physician: Emmanuel Negron MD Admit Status: From the Emergency Department, Admit to Green Team Chief Complaint: Testicular swelling History of Present Illness: The patient is a 46-year-old morbidly obese white male with history of hepatitis C which has gone untreated, intravenous drug use with heroin and history of MRSA skin and soft tissue infections who presented to [facility] emergency room with a complaint of worsening testicular swelling which started 4 days prior to admission. Patient was seen in the emergency department 2 days prior to this admission and was discharged with 10 day course prescription of clindamycin. Patient states that he was face on taking his antibiotics 300 mg by mouth 4 times a day and would set his alarm on his phone to wake him up to take the medication. He believes that his swelling has increased by about a third in the last 12 hours prior to admission. The patient has associated symptoms including leg swelling, lower abdominal swelling , and testicular redness. The patient denied rectal pain, fever, chills, vomiting, or any other symptoms. He is still using IV drugs and describes his heroin habit has a heavy one. The patient was evaluated in the emergency room by Dr. Oracio Lemons. Ultrasound of the scrotum was ordered which showed no subcutaneous gas. However, there was significant amount of cellulitis extending to the abdomen and legs. A CT scan was ordered which also failed to reveal any subcutaneous gas that would suggest Shaka's gangrene. Dr. Christensen agreed to see the patient in urological consultation. Therefore, the patient was admitted to the hospitalist service for further evaluation and treatment. Review of Systems: General: The patient has no fever, no chills, no diaphoresis and no nausea or vomiting. However, the patient does complain of diarrhea since starting clindamycin. HEENT: Patient has no headache, patient has no diplopia, patient has recent changes in vision, with decreased visual acuity. Patient does not have glasses as of yet. Patient has no problems with their ears, nose or throat. Patient has known dental problems and has lost most of his teeth. He is planning on having the rest of them pulled and then getting a set of dentures.. Patient has no pharyngitis or history of thrush. Neck: Patient has no stiffness in the neck. Patient has no lymphadenopathy. Patient has no other problems with their neck. Pulmonary: Patient has no shortness of breath, no cough, no expectoration of sputum. Patient has no pleurisy. Patient has no chest pain. Patient has no history of asthma or COPD. Cardiovascular: Patient has no chest pain. Patient has no history of heart murmur. Patient has no palpitations. Patient has no history of myocardial infarction. Patient has no history of coronary artery disease. Gastrointestinal: Patient has no history of hepatitis A or B. However, he has a history of hepatitis C which has gone untreated to date. Patient has no history of peptic ulcer disease. Patient has no history of gastroesophageal reflux disease. Patient has no history of nausea or vomiting. However he does complain of diarrhea since starting clindamycin. Patient has no history of hematemesis, hematochezia, or melena. Patient has no history of colitis. Renal: Patient has no history of kidney disease. No history of kidney stones. Genitourinary: Patient has no previous history of dysuria, frequency, or incontinence. The patient states he has nocturia 2 but no known prostate problems. Patient has no previous history of genitourinary problems. The patient is able to urinate with the scrotal swelling however unable to direct his stream. Musculoskeletal: Patient has no history of muscular skeletal problems. Neurologic: Patient has no history of stroke, no history of seizure, no history of TIA. Psychiatric: Patient has no history of psychiatric problems. The remainder of the entire review of systems was reviewed with patient and is as mentioned above otherwise negative. Allergies Coded Allergies: Sulfa (Sulfonamide Antibiotics) (Verified Allergy, Unknown, 01/16/17) Home Medications Scheduled Clindamycin (Clindamycin) 300 Mg Capsule 300 MG PO QID Furosemide (Lasix) 40 Mg Tablet 40 MG PO BID Ibuprofen (Ibuprofen) 800 Mg Tablet 800 MG PO BID Terbinafine Cream (Terbinafine Cream) 30 Gm Cream..g. [address] [facility] IVDU (heroin) use. Patient describes himself as a "heavy" user. History of MRSA infected abscesses and skin and soft tissue infections due to IVDU Hepatitis C which has never been treated. Morbid Obesity Surgical History Patient had a tonsillectomy when he was young boy Patient has had all this was not teeth removed 4 and he has had over half of his teeth removed since then. His plan is to remove the mole on eventually get a pair of dentures. Patient has had spinal surgery at the level of what he believes is L4-L5 at [facility] just a few months ago. Patient also has heroin use Family History Patient's mother is 81 years old and healthy and independent. Patient's father in his 80s of emphysema. The patient has 4 brothers who are "okay" the patient has 4 sisters one sister of a heroin and Xanax overdose. The other 3 sisters are "okay". Social History Hx Alcohol Use: No Hx Substance Use: Yes (HEROIN DAILY, Methamphetamine use is minimal) Hx Tobacco Use: Yes Smoking Status: Current Every Day Smoker (The patient used to smoke 1 pack per day for years and now has cut back to 5-6 cigarettes per day. Patient just started smoking when he was [age] years old.) Additional Information The patient was born and raised in [place], [place]. He made it to the 9th grade in high school and then his mother remarried to a gentleman like to sell their wares at [employer]. They moved [place] across the country. 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 He moved to [place] and then moved to [facility] to work with his [id number] in construction. 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 He got at the age of 21 and stayed for 12 years he worked hard supporting his and 3 kids and his and wanted to move to [place] to be with her mother and they ended up in a divorce. 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 He should still works construction and is quite active in business dealings which helped him before to $60-200 per day heroin habit. Patient lives here in [place]. Exam Vital Signs Vital Sign - Last Date Time Temp Pulse Resp B/P Pulse Ox O2 Delivery O2 Flow Rate FiO2 01/16/17 17:33 36.4 90 18 168/85 99 Room Air Exam General: The patient is in no distress laying supine in bed. He is morbidly obese HEENT: Head is atraumatic and normocephalic. Eyes: Pupils are equally round and reactive to light and accommodation. Extraocular muscles are intact. Sclera are white, anicteric. Subconjunctival mucosa is pink. Ears and nose are unremarkable. Oropharynx: There is no mucosal lesions, there is no thrush, there is no pharyngitis. Dentition is poor and he is missing most of his teeth. The remaining teeth are in poor condition. Neck: Is supple, there are no nodes, or masses or tenderness. Chest: Is clear to auscultation and percussion. There are no rales, rhonchi, wheezes or rubs. Heart: Rate, rhythm is regular. There is no murmur, rub or gallop. Due to body habitus heart tones are distant. Abdomen: Good bowel sounds are present. Abdomen is morbidly obese, soft, nontender, no organomegaly or masses were appreciated. Extremities: Are symmetrical and well perfused. Both lower extremities are wrapped in an Kerlix and Clarence wrap which was just completed by wound care and left undisturbed. There is ulceration which is also just recently dressed on the left lateral thigh. The wound care team states that the base was clean with good granulation tissue and the proximally half centimeter or less in depth. Neurologic: There are no focal neurological deficits. Cranial nerves II through XII are intact. There are no sensory or motor deficits. Psychiatric: Patients mood is calm and shows no sign of agitation. Genital: There is a significant amount of scrotal edema and erythema. The penis is not visualized on initial inspection. The erythema extends to the abdomen and thighs. Rectal: Deferred Lab and Diagnostics Result Diagram: 01/16/1781901/16/17 08 X-Rays, CTs and MRIs PROCEDURE: CT ABDOMEN AND PELVIS WITH CONTRAST ([id number]) INDICATIONS: infection of perineum and lower abd wall, IVDA TECHNIQUE: After the administration of intravenous contrast, 5 mm thick sections acquired from the diaphragm to the symphysis. 5 mm coronal and sagittal reformats were acquired. For radiation dose reduction, the following was used: automated exposure control, adjustment of mA and/or kV according to patient size. COMPARISON: None. FINDINGS: Image quality: Excellent. ABDOMEN: Lung bases: Lung bases are clear. Heart size is normal. Solid organs: Liver and spleen are normal in size and enhancement. Gallbladder contains sludge and a calcified gallstone but does not appear inflamed. Biliary system is non dilated. Pancreas enhances normally. No adrenal nodules. Kidneys demonstrate normal size and enhancement, without hydronephrosis. Peritoneum and bowel: Bowel loops demonstrate normal wall thickness and caliber. No free fluid or air. Nodes and vessels: No retroperitoneal or mesenteric adenopathy by size criteria. Aorta and inferior vena cava are normal in size. Miscellaneous: No ventral hernias. Edema tracks along the lateral body sidewalls symmetrically without gas in this area of apparent subcutaneous fat edema and cutaneous thickening. PELVIS: Genitourinary: Bladder wall thickness is normal. Pronounced wall thickening, without gas in the soft tissues. Prominent adjacent edema tracks cephalad along the pelvic sidewalls and caudad into the upper thighs bilaterally to these imaging margin. No gas in the soft tissues is found. Miscellaneous: No inguinal hernias or adenopathy. Bones: No suspicious bony lesions. No vertebral body compression fractures. IMPRESSION: Cellulitis pattern, pronounced at the scrotum, without gas in the soft tissues. Gallstones and sludge within the gallbladder which does not show evidence of acute cholecystitis. Dictated by: Russel Palmer M.D. on 01/16/2017 at 13:07 Approved by: Russel Palmer M.D. on 01/16/2017 at 13:10 PROCEDURE: US TESTICULAR SONOGRAM WITH DOPPLER INDICATIONS: swelling, cellulitis, concern for deep infection TECHNIQUE: Real-time scanning was performed of the scrotum and testicles, with image documentation. Color and pulse Doppler interrogation was performed of both testicles. COMPARISON: None. FINDINGS: Right: Testicle is normal in size at 3.0 x 2.9 x 4.2 cm, and homogenous in echotexture. Epididymis is normal in overall size and morphology. No hydrocele or varicoceles. Overlying scrotal skin is markedly abnormal in thickness, measuring up to 4-8 cm in thickness, contiguous with the left hemiscrotum. Left: Testicle is normal in size at 3.0 x 2.6 x 4.0 cm, and homogeneous in echotexture. Epididymis is normal in overall size and morphology. No hydrocele or varicoceles. Overlying scrotal skin is also seen to be markedly abnormal in thickness to the same degree as that seen on the right. Doppler: Color and pulse Doppler demonstrate normal and symmetric arterial flow in both testicles. IMPRESSION: Marked and soft tissue swelling over the entire hemiscrotum on the right and left, with hyperemia and yet no evidence for abnormal echotexture of the testicles. The appearance is most consistent with cellulitis. 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 CT scanning is scheduled, which provides a more accurate method for detection of gas in the soft tissues. Dictated by: Russel Palmer M.D. on 01/16/2017 at 10:20 Approved by: Russel Palmer M.D. on 01/16/2017 at 10:26 Assessment & Plan The patient is a 46-year-old morbidly obese white male with history of hepatitis C which has gone untreated, intravenous drug use with heroin and history of MRSA skin and soft tissue infections who presented to [facility] emergency room with a complaint of worsening testicular swelling which started 4 days prior to admission. Patient was seen in the emergency department 2 days prior to this admission and was discharged with 10 day course prescription of clindamycin. Patient states that he was face on taking his antibiotics 300 mg by mouth 4 times a day and would set his alarm on his phone to wake him up to take the medication. He believes that his swelling has increased by about a third in the last 12 hours prior to admission. The patient has associated symptoms including leg swelling, lower abdominal swelling , and testicular redness. The patient denied rectal pain, fever, chills, vomiting, or any other symptoms. He is still using IV drugs and describes his heroin habit has a heavy one. The patient was evaluated in the emergency room by Dr. Oracio Lemons. Ultrasound of the scrotum was ordered which showed no subcutaneous gas. However, there was significant amount of cellulitis extending to the abdomen and legs. A CT scan was ordered which also failed to reveal any subcutaneous gas that would suggest Shaka's gangrene. Dr. Christensen agreed to see the patient in urological consultation. Therefore, the patient was admitted to the hospitalist service for further evaluation and treatment. # Cellulitis of the scrotum extending to the abdomen and thighs, present on admission. Active - Based upon findings on ultrasound and CT scan there does not appear to be evidence of Shaka's gangrene. However, patient will need to be followed very closely and repeat CT scan will be performed in 3 days. - Meanwhile will continue broad-spectrum antibiotics which included vancomycin to cover MRSA and meropenem to cover gram negatives and anaerobic bacteria. - We will check serial CBCs and other inflammatory markers including sedimentation rate, C-reactive protein and pro calcitonin. - We will place a folded towel underneath his scrotum to keep his scrotum elevated. This will help with the edema which is complicating the patient's problem. Will consider diuretic therapy if this is ineffective. - I have consulted Dr. Christensen for urology consultation and follow-up. I appreciate his time and expertise. I have discussed the case with Dr. Christensen before and after he visited with the patient. # History of MRSA isolated from numerous skin and soft tissue infections, present on admission. This certainly could be playing a role in the patient's current infection - There is nothing to culture in the area of the scrotum or perineum and will rely on blood cultures obtained from the emergency room to try to identify a primary pathogen. - We will continue vancomycin - There is no need to do an MRSA nasal screen is patient has had numerous infections due to MRSA and is likely a carrier. # History of intravenous drug use primarily with heroin. - Patient has a $60-200 a day heroin habit. - As patient is uncomfortable will prescribe Dilaudid and [place] orally for patient to take for relief. - We will watch for withdrawal. - Patient encouraged to quit his habit after a long discussion. # Morbid obesity with BMI of 53.7 kg/m, present on admission. Active - I suspect patient may have obstructive sleep apnea which is contributing to scrotal edema and lower extremity edema. - We will recommend the patient obtain a sleep study as an outpatient. - We will order nocturnal oximetry. Patient will be supplied oxygen as needed. - Might consider arterial blood gas testing. # History of hepatitis C, present on admission are inactive - Patient will need to seek outpatient treatment - Check patient for HIV Disposition: As patient will be here more than 2 midnights for continued evaluation and treatment of the above serious medical condition, the patient is being admitted as an inpatient. Pain Evaluation: Adequate Pain Control VTE Prophylaxis: Sub-Q Enoxaparin Resuscitation Status: CPR: Attempt Resuscitation Emmanuel Negron MD Jan 16, 2017 19:50
[2017-01-16 20:30] VITALS: BP 175/107; PULSE 80; RESP 18; O2SAT 99
[2017-01-16] MEDS: Meropenem Inj 2,000 MG in 0.9% Sodium Chloride 100 ML IV SCH (22:46)
[2017-01-17] MEDS: HYDROmorphone 0.5 mg/0.5 mL iSecure Syringe IVPUSH PRN ×3 (02:17→16:56)
[2017-01-17] MEDS: Vancomycin Inj 1,750 MG in 0.9% Sodium Chloride 500 ML IV SCH ×2 (03:23→13:33)
--- NOTE | 2017-01-17 05:42 | DRSVH ---
PROCEDURE: X-RAY CHEST ONE VIEW, PORTABLE ([id number]) INDICATIONS: Possible infiltrate TECHNIQUE: One view of the chest was acquired. COMPARISON: [facility], CR, XR PICC LINE PLACE BY NURSE, 01/16/2017, 11:10. [facility], CT, CT ABD PELVIS W CON, 01/16/2017, 12:32. [facility], CR, XR CHEST 1VW (POR TABLE), 01/12/2017, 2:30. FINDINGS: Surgical changes and devices: Left PICC present projected over the mid superior vena cava. Lungs and pleura: No pleural effusions or pneumothorax. Lungs are clear. Mediastinum: Mediastinal contours appear normal. Heart size is normal. Bones and chest wall: No suspicious bony lesions. Overlying soft tissues appear unremarkable. IMPRESSION: No acute cardiopulmonary disease. Dictated by: Arturo THOMPSON Interpreted: Russel Palmer MD on 01/16/2017 at 16:49 Approved by: Russel Palmer M.D. on 01/17/2017 at 4:40
--- NOTE | 2017-01-17 05:47 | NUR ---
PAIN Pt complained of scrotol pain 8/10 x3 during the night. Administered pain meds, decreased pain 5/10. Call light within reach using appropriately. Frequent rounding in place. Pleasant and cooperative with care.
[2017-01-17 05:48] VITALS: BP 167/80; PULSE 81; RESP 18; O2SAT 99
[2017-01-17 06:01] LABS: BASOPHILS % (AUTO) 0.3 % (0-3); EOSINOPHILS % (AUTO) 5.1 % (0-5); MONOCYTES % (AUTO) 5.6 % (4-12); Mean Corpuscular Hemoglobin 26.5 pg (27.0-35.0); Mean Corpuscular Volume 84.6 fL (81-100); NEUTROPHILS % (AUTO) 58.5 % (40-74); Platelet Count 203 bil/L (150-400)
[2017-01-17] MEDS: HYDROcodone-APAP 5-325 mg Tablet PO PRN ×3 (06:18→18:59)
[2017-01-17 06:26] LABS: Magnesium 1.9 mg/dL (1.6-2.6)
--- NOTE | 2017-01-17 06:33 | NUR ---
IV Antibiotic Antibiotic not on unit. Spoke with lab. Shortage of Meropenem, did not send to unit. Tech will mix up antibiotic and will be send to [facility] when ready. Will pass on to day RN.
[2017-01-17 07:41] LABS: ERYTHROCYTE SEDIMENTATION RATE 52 mm/hr (0-15)
[2017-01-17] MEDS: Vancomycin Dose per Pharmacist XX SCH (08:30)
[2017-01-17] MEDS: Meropenem Inj 2,000 MG in 0.9% Sodium Chloride 100 ML IV SCH ×3 (08:52→21:26)
[2017-01-17] MEDS: 0.9% Sodium Chloride 1,000 ML IV SCH ×2 (09:06→17:02)
[2017-01-17 14:04] VITALS: BP 146/89; PULSE 76; RESP 18; O2SAT 96
--- NOTE | 2017-01-17 17:00 | NUR ---
Pain/activity: Patient received PRN pain meds for his Scrotum Pain. The Meds have been adequate to relive his pain from an 8 down to a 4-5 level. Patient continues to be on IV ABT for his swollen scrotum. He is calm and cooperative with his care. He has been up independent in his room and to the bathroom.
--- NOTE | 2017-01-17 19:01 | DRSVH ---
PROCEDURE: X-RAY CHEST ONE VIEW, PORTABLE ([id number]) INDICATIONS: For PICC line placement TECHNIQUE: One view of the chest was acquired. COMPARISON: None. FINDINGS: Surgical changes and devices: None. Lungs and pleura: No pleural effusions or pneumothorax. Lungs are clear. Mediastinum: Mediastinal contours appear normal. Heart size is normal. Bones and chest wall: No suspicious bony lesions. Overlying soft tissues appear unremarkable. IMPRESSION: No acute disease. Dictated by: Harvey Davis M.D. on 01/17/2017 at 18:59 Approved by: Harvey Davis M.D. on 01/17/2017 at 18:59
[2017-01-17 20:28] VITALS: BP 155/87; PULSE 81; RESP 20; O2SAT 97
--- NOTE | 2017-01-17 22:33 | PCM.PNMED ---
Subjective Date of Service Jan 17, 2017 Subjective Patient is feeling a little bit better today. He is complaining of yeast underneath his panniculus and perineal area and would like some cream or powder for it. He has no other new complaints. Exam Vital Signs Vital Sign - Last Date Time Temp Pulse Resp B/P Pulse Ox O2 Delivery O2 Flow Rate FiO2 01/17/17 20:28 36.8 81 20 155/87 97 Room Air Intake and Output 01/16/17 01/16/17 01/17/17 Cumulative From/Thru 15:00 23:00 07:00 01/16/17 05:42 - 01/17/17 06:57 Intake Total 450 ml 2426 ml 2876 ml Balance 450 ml 2426 ml 2876 ml Intake Oral 450 ml 1200 ml 1650 ml IV Total 1226 ml 1226 ml # Voids 1 3 4 # Bowel Movements 0 0 Exam General: The patient is in no distress laying supine in bed. He is morbidly obese. He appears more comfortable today. HEENT: Head is atraumatic and normocephalic. Eyes: Pupils are equally round and reactive to light and accommodation. Extraocular muscles are intact. Sclera are white, anicteric. Subconjunctival mucosa is pink. Ears and nose are unremarkable. Oropharynx: There is no mucosal lesions, there is no thrush, there is no pharyngitis. Dentition is poor and he is missing most of his teeth. The remaining teeth are in poor condition. Neck: Is supple, there are no nodes, or masses or tenderness. Chest: Is clear to auscultation and percussion. There are no rales, rhonchi, wheezes or rubs. Heart: Rate, rhythm is regular. There is no murmur, rub or gallop. Due to body habitus heart tones are distant. Abdomen: Good bowel sounds are present. Abdomen is morbidly obese, soft, nontender, no organomegaly or masses were appreciated. Extremities: Are symmetrical and well perfused. Both lower extremities are wrapped in an Kerlix and Clarence wrap which was just completed by wound care and left undisturbed. There is ulceration which is also just recently dressed on the left lateral thigh. The wound care team states that the base was clean with good granulation tissue and the proximally half centimeter or less in depth. Neurologic: There are no focal neurological deficits. Cranial nerves II through XII are intact. There are no sensory or motor deficits. Psychiatric: Patients mood is calm and shows no sign of agitation. Genital: There is a significant amount of scrotal edema and erythema. This has improved slightly today. There is some peeling of the skin. The penis is not visualized on initial inspection. The erythema extends to the abdomen and thighs. This erythema has improved slightly. Rectal: Deferred Lab and Diagnostics Result Diagram: 01/17/1752901/17/17529 X-Rays, CTs and MRIs PROCEDURE: CT ABDOMEN AND PELVIS WITH CONTRAST ([id number]) INDICATIONS: infection of perineum and lower abd wall, IVDA TECHNIQUE: After the administration of intravenous contrast, 5 mm thick sections acquired from the diaphragm to the symphysis. 5 mm coronal and sagittal reformats were acquired. For radiation dose reduction, the following was used: automated exposure control, adjustment of mA and/or kV according to patient size. COMPARISON: None. FINDINGS: Image quality: Excellent. ABDOMEN: Lung bases: Lung bases are clear. Heart size is normal. Solid organs: Liver and spleen are normal in size and enhancement. Gallbladder contains sludge and a calcified gallstone but does not appear inflamed. Biliary system is non dilated. Pancreas enhances normally. No adrenal nodules. Kidneys demonstrate normal size and enhancement, without hydronephrosis. Peritoneum and bowel: Bowel loops demonstrate normal wall thickness and caliber. No free fluid or air. Nodes and vessels: No retroperitoneal or mesenteric adenopathy by size criteria. Aorta and inferior vena cava are normal in size. Miscellaneous: No ventral hernias. Edema tracks along the lateral body sidewalls symmetrically without gas in this area of apparent subcutaneous fat edema and cutaneous thickening. PELVIS: Genitourinary: Bladder wall thickness is normal. Pronounced wall thickening, without gas in the soft tissues. Prominent adjacent edema tracks cephalad along the pelvic sidewalls and caudad into the upper thighs bilaterally to these imaging margin. No gas in the soft tissues is found. Miscellaneous: No inguinal hernias or adenopathy. Bones: No suspicious bony lesions. No vertebral body compression fractures. IMPRESSION: Cellulitis pattern, pronounced at the scrotum, without gas in the soft tissues. Gallstones and sludge within the gallbladder which does not show evidence of acute cholecystitis. Dictated by: Russel Palmer M.D. on 01/16/2017 at 13:07 Approved by: Russel Palmer M.D. on 01/16/2017 at 13:10 PROCEDURE: US TESTICULAR SONOGRAM WITH DOPPLER INDICATIONS: swelling, cellulitis, concern for deep infection TECHNIQUE: Real-time scanning was performed of the scrotum and testicles, with image documentation. Color and pulse Doppler interrogation was performed of both testicles. COMPARISON: None. FINDINGS: Right: Testicle is normal in size at 3.0 x 2.9 x 4.2 cm, and homogenous in echotexture. Epididymis is normal in overall size and morphology. No hydrocele or varicoceles. Overlying scrotal skin is markedly abnormal in thickness, measuring up to 4-8 cm in thickness, contiguous with the left hemiscrotum. Left: Testicle is normal in size at 3.0 x 2.6 x 4.0 cm, and homogeneous in echotexture. Epididymis is normal in overall size and morphology. No hydrocele or varicoceles. Overlying scrotal skin is also seen to be markedly abnormal in thickness to the same degree as that seen on the right. Doppler: Color and pulse Doppler demonstrate normal and symmetric arterial flow in both testicles. IMPRESSION: Marked and soft tissue swelling over the entire hemiscrotum on the right and left, with hyperemia and yet no evidence for abnormal echotexture of the testicles. The appearance is most consistent with cellulitis. 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 CT scanning is scheduled, which provides a more accurate method for detection of gas in the soft tissues. Dictated by: Russel Palmer M.D. on 01/16/2017 at 10:20 Approved by: Russel Palmer M.D. on 01/16/2017 at 10:26 Assessment & Plan The patient is a 46-year-old morbidly obese white male with history of hepatitis C which has gone untreated, intravenous drug use with heroin and history of MRSA skin and soft tissue infections who presented to [facility] emergency room with a complaint of worsening testicular swelling which started 4 days prior to admission. Patient was seen in the emergency department 2 days prior to this admission and was discharged with 10 day course prescription of clindamycin. Patient states that he was face on taking his antibiotics 300 mg by mouth 4 times a day and would set his alarm on his phone to wake him up to take the medication. He believes that his swelling has increased by about a third in the last 12 hours prior to admission. The patient has associated symptoms including leg swelling, lower abdominal swelling , and testicular redness. The patient denied rectal pain, fever, chills, vomiting, or any other symptoms. He is still using IV drugs and describes his heroin habit has a heavy one. The patient was evaluated in the emergency room by Dr. Oracio Lemons. Ultrasound of the scrotum was ordered which showed no subcutaneous gas. However, there was significant amount of cellulitis extending to the abdomen and legs. A CT scan was ordered which also failed to reveal any subcutaneous gas that would suggest Shaka's gangrene. Dr. Christensen agreed to see the patient in urological consultation. Therefore, the patient was admitted to the hospitalist service for further evaluation and treatment. # Cellulitis of the scrotum extending to the abdomen and thighs, present on admission. Active - Based upon findings on ultrasound and CT scan there does not appear to be evidence of Shaka's gangrene. However, patient will need to be followed very closely and repeat CT scan will be performed in 2 days. - Meanwhile will continue broad-spectrum antibiotics which included vancomycin to cover MRSA and Meropenem to cover gram negatives and anaerobic bacteria. - We will check serial CBCs and other inflammatory markers including sedimentation rate, C-reactive protein and pro calcitonin. - We will place a folded towel underneath his scrotum to keep his scrotum elevated. This will help with the edema which is complicating the patient's problem. Will consider diuretic therapy if this is ineffective. - I have consulted Dr. Christensen for urology consultation and follow-up. I appreciate his time and expertise. I have discussed the case with Dr. Christensen before and after he visited with the patient again today. # History of MRSA isolated from numerous skin and soft tissue infections, present on admission. This certainly could be playing a role in the patient's current infection - There is nothing to culture in the area of the scrotum or perineum and will rely on blood cultures obtained from the emergency room to try to identify a primary pathogen. - We will continue vancomycin - There is no need to do an MRSA nasal screen is patient has had numerous infections due to MRSA and is likely a carrier. # History of intravenous drug use primarily with heroin. - Patient has a $60-200 a day heroin habit. - As patient is uncomfortable will prescribe Dilaudid and [place] orally for patient to take for relief. - We will watch for withdrawal. - Patient encouraged to quit his habit after a long discussion. # Morbid obesity with BMI of 53.7 kg/m, present on admission. Active - I suspect patient may have obstructive sleep apnea which is contributing to scrotal edema and lower extremity edema. - We will recommend the patient obtain a sleep study as an outpatient. - We will order nocturnal oximetry. Patient will be supplied oxygen as needed. - Might consider arterial blood gas testing. # History of hepatitis C, present on admission are inactive - Patient will need to seek outpatient treatment - Check patient for HIV Disposition: The patient will likely be here several more days for further evaluation and treatment of the above complex infection and medical problems. Pain Evaluation: Adequate Pain Control VTE Prophylaxis: Sub-Q Enoxaparin Resuscitation Status: CPR: Attempt Resuscitation Emmanuel Negron MD Jan 17, 2017 22:33
--- NOTE | 2017-01-18 01:02 | PROG NOTE ---
[address] [address] PROGRESS NOTE PATIENT: CRISTHIAN CHONG : 1970 MR#: [id number] ADMIT: 01/16/2017 JOB ID: [id number] DATE: 01/17/2017 SUBJECTIVE: Hospital day #1. Scrotal cellulitis. He reports his pain and tenderness are relatively unchanged. He denies other new symptomatology. He denies voiding complaints. OBJECTIVE: Afebrile. Vital signs are stable. Urine output has been brisk. He is again seen in supine in his bed, and in no distress. Abdomen is unchanged. Genitalia exam: Appears to be a bit less tense and mildly less erythematous. He had no specific clear margins on the skin that I could discern yesterday nor today. IMPRESSION: Clinically stable scrotal cellulitis. Currently on IV vancomycin. PLAN: As in note January 16, 2017.
[2017-01-18] MEDS: Vancomycin Inj 1,750 MG in 0.9% Sodium Chloride 500 ML IV SCH ×2 (02:47→15:28)
[2017-01-18] MEDS: 0.9% Sodium Chloride 1,000 ML IV SCH ×2 (02:48→15:54)
[2017-01-18] MEDS: HYDROmorphone 0.5 mg/0.5 mL iSecure Syringe IVPUSH PRN ×4 (02:49→23:51)
[2017-01-18] MEDS: Meropenem Inj 2,000 MG in 0.9% Sodium Chloride 100 ML IV SCH ×3 (06:15→22:02)
[2017-01-18 06:33] LABS: BASOPHILS % (AUTO) 0.2 % (0-3); EOSINOPHILS % (AUTO) 4.5 % (0-5); MONOCYTES % (AUTO) 7.2 % (4-12); Mean Corpuscular Hemoglobin 26.2 pg (27.0-35.0); Mean Corpuscular Volume 84.8 fL (81-100); NEUTROPHILS % (AUTO) 59.7 % (40-74); Platelet Count 203 bil/L (150-400)
[2017-01-18 06:38] VITALS: BP 144/81; PULSE 83; RESP 20; O2SAT 96
[2017-01-18 07:01] LABS: Magnesium 1.8 mg/dL (1.6-2.6)
--- NOTE | 2017-01-18 07:24 | NUR ---
Pain Took over care of patient around midnight. Pt given Dilaudid x1 for 8/10 scrotal pain, this appeared effective as pt fell asleep for most of the remainder of the shift. Monitored on GOLF TECHNICIAN d/t JOSEPH. Pt counseled on pain control as he expresses desire to not take too much pain medicine.
[2017-01-18] MEDS: Vancomycin Dose per Pharmacist XX SCH (08:30)
[2017-01-18] MEDS ORDERED: Magnesium Sulf 2 Gm/50mL Water 2 GM in IV Premix 1 EACH IV ONE (08:45)
[2017-01-18] MEDS: HYDROcodone-APAP 5-325 mg Tablet PO PRN ×3 (08:57→22:01)
[2017-01-18] MEDS ORDERED: Vancomycin Serum Trough XX ONE (13:00)
[2017-01-18 13:03] VITALS: BP 148/85; PULSE 90; RESP 20; O2SAT 98
--- NOTE | 2017-01-18 14:36 | PCM.PHAPRO ---
Progress Testicular swelling VANCOMYCIN DOSING PER PHARMACY Labs: Trough: 11.5 SCr: 0.68 WBC: 4.9 P: Will continue vancomycin 1750mg IV q12h Will draw additional trough on 01/20 @1300 Pharmacy will continue to follow Jessika Boyd PharmD Jan 18, 2017 14:36
--- NOTE | 2017-01-18 15:24 | NUR ---
Social Work-initial assessment: Data:See initial assessment Pt is a 46 y/o male who was admitted on 01/16/17 for scrotal cellulites per H&P. Pt's insurance is [employer] and PCP is not listed. EMR Reviewed. Pt's readmission score is 2. SW met with pt at bedside, SW role explained. Pt is alert and oriented x3. pt resides at home with his SO where he remains independent with ADLs. Pt drives and does not use any DME. Pt has no HH or SNF history. Pt has no [facility] care insurance or [facility] benefits. Pt discussed DPOA/ advanced directive, pt confirms he has completed this, SW encouraged a copy to be brought in. Pt confirms his SO will provide transport home. SW complete CD assessment, SW alternative [facility] SW provided with pt discharge planning checklist and encouraged pt to call with any questions, phone number provided. SW will continue to follow. Assessment:pt who is independent at baseline. Plan:Pt to discharge home once IV abx are completed. SW will continue to follow. VADIM Boogie Addendum: 01/18/17 at 1527 by CUCA MEEHAN Amended: Links added.
--- NOTE | 2017-01-18 15:27 | NUR ---
Social Work-chemical dependency assessment: Data:EMR reviewed. Pt is on day 2 of hospitalization for scrotal cellulitis per H&P. Pt is likely here for extended course of IV abx. Pt reports that he uses IV heroin regularly. SW discussed pt meeting with KEESHA from [facility] and pt is agreeable. SW had ROBYN signed and referral given to Ivory who will be back Thursday and will meet with pt. ROBYN completed and placed in the front of the chart. SW will continue to follow. Assessment:Pt who is independent at baseline. Plan:Pt to discharge back home when medically stable. ROBYN signed and placed in the chart. KESEHA Dodson from [facility] to meet with pt. LATONYA will continue to follow. VADIM Boogie
--- NOTE | 2017-01-18 19:02 | PCM.PNMED ---
Subjective Date of Service Jan 18, 2017 Subjective The patient complains of some discomfort in the folds of the skin and under his panniculus. He states that his scrotum is feeling a little bit better. However , it is still painful. Exam Vital Signs Vital Sign - Last Date Time Temp Pulse Resp B/P Pulse Ox O2 Delivery O2 Flow Rate FiO2 01/18/17 13:03 36.7 90 20 148/85 98 Room Air Intake and Output 01/17/17 01/17/17 01/18/17 Cumulative From/Thru 15:00 23:00 07:00 01/16/17 05:42 - 01/18/17 06:20 Intake Total 2224 ml 2727 ml 7827 ml Balance 2224 ml 2727 ml 7827 ml Intake Oral 1064 ml 2714 ml IV Total 1160 ml 2727 ml 5113 ml # Voids 4 8 # Bowel Movements 0 0 Exam General: The patient is in no distress laying supine in bed. He is morbidly obese. He appears slightly more comfortable today. HEENT: Head is atraumatic and normocephalic. Eyes: Pupils are equally round and reactive to light and accommodation. Extraocular muscles are intact. Sclera are white, anicteric. Subconjunctival mucosa is pink. Ears and nose are unremarkable. Oropharynx: There are no mucosal lesions, there is no thrush , there is no pharyngitis. Dentition is poor and he is missing most of his teeth. The remaining teeth are in poor condition. Neck: Is supple, there are no nodes, or masses or tenderness. Chest: Is clear to auscultation and percussion. There are no rales, rhonchi, wheezes or rubs. Heart: Rate, rhythm is regular. There is no murmur, rub or gallop. Due to body habitus heart tones are distant. Abdomen: Good bowel sounds are present. Abdomen is morbidly obese, soft, nontender, no organomegaly or masses were appreciated. Extremities: Are symmetrical and well perfused. Both lower extremities are wrapped in an Kerlix and Clarence wrap which was just completed by wound care and left undisturbed. There is ulceration on the left lateral thigh. The wound care team states that the base was clean with good granulation tissue and the proximally half centimeter or less in depth. Neurologic: There are no focal neurological deficits. Cranial nerves II through XII are intact. There are no sensory or motor deficits. Psychiatric: Patients mood is calm and shows no sign of agitation. Genital: There is a significant amount of scrotal edema and erythema. This has improved slightly again today. There is some peeling of the skin. The penis is not well visualized. The erythema extends to the abdomen and thighs. This erythema has improved slightly again today. Rectal: Deferred Lab and Diagnostics Result Diagram: 01/18/17 0610 01/18/17609 Microbiology Blood cultures are negative 2 days and MRSA screen is still pending. X-Rays, CTs and MRIs PROCEDURE: CT ABDOMEN AND PELVIS WITH CONTRAST ([id number]) INDICATIONS: infection of perineum and lower abd wall, IVDA TECHNIQUE: After the administration of intravenous contrast, 5 mm thick sections acquired from the diaphragm to the symphysis. 5 mm coronal and sagittal reformats were acquired. For radiation dose reduction, the following was used: automated exposure control, adjustment of mA and/or kV according to patient size. COMPARISON: None. FINDINGS: Image quality: Excellent. ABDOMEN: Lung bases: Lung bases are clear. Heart size is normal. Solid organs: Liver and spleen are normal in size and enhancement. Gallbladder contains sludge and a calcified gallstone but does not appear inflamed. Biliary system is non dilated. Pancreas enhances normally. No adrenal nodules. Kidneys demonstrate normal size and enhancement, without hydronephrosis. Peritoneum and bowel: Bowel loops demonstrate normal wall thickness and caliber. No free fluid or air. Nodes and vessels: No retroperitoneal or mesenteric adenopathy by size criteria. Aorta and inferior vena cava are normal in size. Miscellaneous: No ventral hernias. Edema tracks along the lateral body sidewalls symmetrically without gas in this area of apparent subcutaneous fat edema and cutaneous thickening. PELVIS: Genitourinary: Bladder wall thickness is normal. Pronounced wall thickening, without gas in the soft tissues. Prominent adjacent edema tracks cephalad along the pelvic sidewalls and caudad into the upper thighs bilaterally to these imaging margin. No gas in the soft tissues is found. Miscellaneous: No inguinal hernias or adenopathy. Bones: No suspicious bony lesions. No vertebral body compression fractures. IMPRESSION: Cellulitis pattern, pronounced at the scrotum, without gas in the soft tissues. Gallstones and sludge within the gallbladder which does not show evidence of acute cholecystitis. Dictated by: Russel Palmer M.D. on 01/16/2017 at 13:07 Approved by: Russel Palmer M.D. on 01/16/2017 at 13:10 PROCEDURE: US TESTICULAR SONOGRAM WITH DOPPLER INDICATIONS: swelling, cellulitis, concern for deep infection TECHNIQUE: Real-time scanning was performed of the scrotum and testicles, with image documentation. Color and pulse Doppler interrogation was performed of both testicles. COMPARISON: None. FINDINGS: Right: Testicle is normal in size at 3.0 x 2.9 x 4.2 cm, and homogenous in echotexture. Epididymis is normal in overall size and morphology. No hydrocele or varicoceles. Overlying scrotal skin is markedly abnormal in thickness, measuring up to 4-8 cm in thickness, contiguous with the left hemiscrotum. Left: Testicle is normal in size at 3.0 x 2.6 x 4.0 cm, and homogeneous in echotexture. Epididymis is normal in overall size and morphology. No hydrocele or varicoceles. Overlying scrotal skin is also seen to be markedly abnormal in thickness to the same degree as that seen on the right. Doppler: Color and pulse Doppler demonstrate normal and symmetric arterial flow in both testicles. IMPRESSION: Marked and soft tissue swelling over the entire hemiscrotum on the right and left, with hyperemia and yet no evidence for abnormal echotexture of the testicles. The appearance is most consistent with cellulitis. 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 CT scanning is scheduled, which provides a more accurate method for detection of gas in the soft tissues. Dictated by: Russel Palmer M.D. on 01/16/2017 at 10:20 Approved by: Russel Palmer M.D. on 01/16/2017 at 10:26 12-lead ECG . Sinus rhythm . Low voltage, precordial leads . Significant rate decrease . When compared with ECG of 16-Jan-2017 6:24:52, . Change in clinical status Assessment & Plan The patient is a 46-year-old morbidly obese white male with history of hepatitis C which has gone untreated, intravenous drug use with heroin and history of MRSA skin and soft tissue infections who presented to [facility] emergency room with a complaint of worsening testicular swelling which started 4 days prior to admission. Patient was seen in the emergency department 2 days prior to this admission and was discharged with 10 day course prescription of clindamycin. Patient states that he was face on taking his antibiotics 300 mg by mouth 4 times a day and would set his alarm on his phone to wake him up to take the medication. He believes that his swelling has increased by about a third in the last 12 hours prior to admission. The patient has associated symptoms including leg swelling, lower abdominal swelling , and testicular redness. The patient denied rectal pain, fever, chills, vomiting, or any other symptoms. He is still using IV drugs and describes his heroin habit has a heavy one. The patient was evaluated in the emergency room by Dr. Oracio Lemons. Ultrasound of the scrotum was ordered which showed no subcutaneous gas. However, there was significant amount of cellulitis extending to the abdomen and legs. A CT scan was ordered which also failed to reveal any subcutaneous gas that would suggest Shaka's gangrene. Dr. Christensen agreed to see the patient in urological consultation. Therefore, the patient was admitted to the hospitalist service for further evaluation and treatment. # Cellulitis of the scrotum extending to the abdomen and thighs, present on admission. Active - Based upon findings on ultrasound and CT scan there does not appear to be evidence of Shaka's gangrene. However, patient will need to be followed very closely and repeat CT scan will be performed in a.m. - Meanwhile will continue broad-spectrum antibiotics which included vancomycin to cover MRSA and Meropenem to cover gram negatives and anaerobic bacteria. High-dose oral Diflucan was added to cover Radha which is likely a major portion of the patient's problem if not the source of his problem. - We will check serial CBCs and other inflammatory markers including sedimentation rate, C-reactive protein and pro calcitonin. - We will place a folded towel underneath his scrotum to keep his scrotum elevated. This will help with the edema which is complicating the patient's problem. Will consider diuretic therapy if this is ineffective. - I have consulted Dr. Christensen for urology consultation and follow-up. I appreciate his time and expertise. I have discussed the case with Dr. Christensen before and after he visited with the patient again today. # History of MRSA isolated from numerous skin and soft tissue infections, present on admission. This certainly could be playing a role in the patient's current infection - There is nothing to culture in the area of the scrotum or perineum and will rely on blood cultures obtained from the emergency room to try to identify a primary pathogen. - We will continue vancomycin - There is no need to do an MRSA nasal screen is patient has had numerous infections due to MRSA and is likely a carrier. # History of intravenous drug use primarily with heroin. - Patient has a $60-200 a day heroin habit. - As patient is uncomfortable will prescribe Dilaudid and [place] orally for patient to take for relief. - We will watch for withdrawal. - Patient encouraged to quit his habit after a long discussion. # Morbid obesity with BMI of 53.7 kg/m, present on admission. Active - I suspect patient may have obstructive sleep apnea which is contributing to scrotal edema and lower extremity edema. - We will recommend the patient obtain a sleep study as an outpatient. - We will order nocturnal oximetry. Patient will be supplied oxygen as needed. - Might consider arterial blood gas testing. # History of hepatitis C, present on admission are inactive - Patient will need to seek outpatient treatment - Check patient for HIV Disposition: The patient will likely be here several more days for further evaluation and treatment of the above complex infection and medical problems. Pain Evaluation: Adequate Pain Control VTE Prophylaxis: Sub-Q Enoxaparin Resuscitation Status: CPR: Attempt Resuscitation Emmanuel Negron MD Jan 18, 2017 19:02
--- NOTE | 2017-01-18 19:24 | NUR ---
Scrotal Swelling: Patients scrotum has been elevated on water filled Ice Bag off and on throughout the day while he is in bed. Patient has been receiving IV antibiotics for his scrotal cellulitis. Pain meds were given PRN with good relief fromo his scrotal discomfort. Continuing care .
[2017-01-18 22:00] VITALS: BP 155/88; PULSE 81; RESP 20; O2SAT 98
--- NOTE | 2017-01-19 02:24 | NUR ---
Pt left AMA: During initial assessment, pt informed RN that if he leaves AMA not to take it personally, that he has had great care at [facility] by the staff but he doesn't like withdrawing form drugs and if at any point he feels like he's starting to withdraw he will leave. He further stated that he is a very heavy Heroin user and the amount of narcotics being given to him at the hospital will not stop/control his withdraws. RN encouraged pt to speak with the MD in the morning regarding his concern, pt said he would. Patient also discussed with RN that dayshift maintenance mechanic 2nd shift came and spoke to him informing him that per hospital policy he would not be allowed to have any visitors that night. RN confirmed that was the case and tomorrow morning during morning MD rounds, the MD would state if patient could have visitors or not. During this conversation the patient was very pleasant and stated that he had no problem waiting until tomorrow to speak with the doctor. Around 0200, patient called RN in to state that he was leaving AMA because he wasn't being given things he was promised: methadone, his dog to visit and his girlfriend to spend the night. RN encouraged pt to stay to finish his antibiotic treatment, pt refused stating he needed to leave. He preceded to say that he knew he was starting to withdraw because he had been up to the bathroom three times and his stool was getting softer and softer, he didn't want to go through withdraw symptoms. AMA paperwork was brought into the patient, he refused to sign it stating that his plastic surgery technician has informed him not to sign anything. RN informed pt that his infection may get worse, he could go septic and . RN encouraged patient to seek treatment at another facility if he felt he wasn't getting his needs met at [facility]. Buzzsaw Operator was called to come remove patients PICC line. Upon Brokerage Purchase And Sale Clerk entering room, patient stated that he wanted to leave due to him not being allowed to have his "service" dog here at the hospital and that if he could have his dog come visit just for an hour or so that he would stay. The rose grading supervisor told him that his dog could come visit, we didn't have any problem with that. In fact, the dog had come to visit him many times off/on during his current stay at the hospital. At that time the patient then agreed to stay and continue his treatment. The patient called his girlfriend to bring the dog and informed her that she would have to wait in the waiting area while he visited with his dog. The patient informed RN that his girlfriend refused to wait in the waiting room and was not going to bring the dog. He then stated that he was going to leave and that his girlfriend had called a cab for him. Once again, supervisor malt house was asked to come and remove PICC line. The rose grading supervisor asked the patient many times if he was sure that he wanted to leave, expressed concern that he had not completed his treatment and also clarified with the patient that this was his choice to leave and not his girlfriends. The patient stated it was his choice and that he needed his dog. He also proceeded to say that he needed methadone, which earlier during RN's initial assessment pt stated that he believed if he was put on Methadone he wouldn't ever get off from it and that he therefore didn't ever want to take it. At not time prior to this did the patient request having his dog come visit to this RN. PICC line was pulled intact with no complications, all of the patient's belongings were gathered. RN assisted in getting patient dressed and RAT EXTERMINATOR transported patient via WC to the front of the hospital and waited with patient for about 15 minutes until a cab arrived. MD was notified prior to patient leaving. Pt was friendly during this exchange.
--- NOTE | 2017-01-20 02:53 | PCM.DC.MED ---
Discharge Summary Date of Service Jan 19, 2017 Dates of Hospitalization Date of Hospital Admission Jan 16, 2017 at 09:26 Date of Discharge: Jan 19, 2017 Providers: Admitting Physician: Emmanuel Negron MD Primary Care Physician: [place] Attending Physician: Emmanuel Negron MD Procedures XRay, CTs & MRIs PROCEDURE: CT ABDOMEN AND PELVIS WITH CONTRAST ([id number]) INDICATIONS: infection of perineum and lower abd wall, IVDA TECHNIQUE: After the administration of intravenous contrast, 5 mm thick sections acquired from the diaphragm to the symphysis. 5 mm coronal and sagittal reformats were acquired. For radiation dose reduction, the following was used: automated exposure control, adjustment of mA and/or kV according to patient size. COMPARISON: None. FINDINGS: Image quality: Excellent. ABDOMEN: Lung bases: Lung bases are clear. Heart size is normal. Solid organs: Liver and spleen are normal in size and enhancement. Gallbladder contains sludge and a calcified gallstone but does not appear inflamed. Biliary system is non dilated. Pancreas enhances normally. No adrenal nodules. Kidneys demonstrate normal size and enhancement, without hydronephrosis. Peritoneum and bowel: Bowel loops demonstrate normal wall thickness and caliber. No free fluid or air. Nodes and vessels: No retroperitoneal or mesenteric adenopathy by size criteria. Aorta and inferior vena cava are normal in size. Miscellaneous: No ventral hernias. Edema tracks along the lateral body sidewalls symmetrically without gas in this area of apparent subcutaneous fat edema and cutaneous thickening. PELVIS: Genitourinary: Bladder wall thickness is normal. Pronounced wall thickening, without gas in the soft tissues. Prominent adjacent edema tracks cephalad along the pelvic sidewalls and caudad into the upper thighs bilaterally to these imaging margin. No gas in the soft tissues is found. Miscellaneous: No inguinal hernias or adenopathy. Bones: No suspicious bony lesions. No vertebral body compression fractures. IMPRESSION: Cellulitis pattern, pronounced at the scrotum, without gas in the soft tissues. Gallstones and sludge within the gallbladder which does not show evidence of acute cholecystitis. Dictated by: Russel Palmer M.D. on 01/16/2017 at 13:07 Approved by: Russel Palmer M.D. on 01/16/2017 at 13:10 PROCEDURE: US TESTICULAR SONOGRAM WITH DOPPLER INDICATIONS: swelling, cellulitis, concern for deep infection TECHNIQUE: Real-time scanning was performed of the scrotum and testicles, with image documentation. Color and pulse Doppler interrogation was performed of both testicles. COMPARISON: None. FINDINGS: Right: Testicle is normal in size at 3.0 x 2.9 x 4.2 cm, and homogenous in echotexture. Epididymis is normal in overall size and morphology. No hydrocele or varicoceles. Overlying scrotal skin is markedly abnormal in thickness, measuring up to 4-8 cm in thickness, contiguous with the left hemiscrotum. Left: Testicle is normal in size at 3.0 x 2.6 x 4.0 cm, and homogeneous in echotexture. Epididymis is normal in overall size and morphology. No hydrocele or varicoceles. Overlying scrotal skin is also seen to be markedly abnormal in thickness to the same degree as that seen on the right. Doppler: Color and pulse Doppler demonstrate normal and symmetric arterial flow in both testicles. IMPRESSION: Marked and soft tissue swelling over the entire hemiscrotum on the right and left, with hyperemia and yet no evidence for abnormal echotexture of the testicles. The appearance is most consistent with cellulitis. 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 CT scanning is scheduled, which provides a more accurate method for detection of gas in the soft tissues. Dictated by: Russel Palmer M.D. on 01/16/2017 at 10:20 Approved by: Russel Palmer M.D. on 01/16/2017 at 10:26 ECG 12 Lead . Sinus rhythm . Low voltage, precordial leads . Significant rate decrease . When compared with ECG of 16-Jan-2017 6:24:52, . Change in clinical status Brief History The patient is a 46-year-old morbidly obese white male with history of hepatitis C which has gone untreated, intravenous drug use with heroin and history of MRSA skin and soft tissue infections who presented to [facility] emergency room with a complaint of worsening testicular swelling which started 4 days prior to admission. Patient was seen in the emergency department 2 days prior to this admission and was discharged with 10 day course prescription of clindamycin. Patient states that he was face on taking his antibiotics 300 mg by mouth 4 times a day and would set his alarm on his phone to wake him up to take the medication. He believes that his swelling has increased by about a third in the last 12 hours prior to admission. The patient has associated symptoms including leg swelling, lower abdominal swelling , and testicular redness. The patient denied rectal pain, fever, chills, vomiting, or any other symptoms. He is still using IV drugs and describes his heroin habit has a heavy one. The patient was evaluated in the emergency room by Dr. Oracio Lemons. Ultrasound of the scrotum was ordered which showed no subcutaneous gas. However, there was significant amount of cellulitis extending to the abdomen and legs. A CT scan was ordered which also failed to reveal any subcutaneous gas that would suggest Shaka's gangrene. Dr. Christensen agreed to see the patient in urological consultation. Therefore, the patient was admitted to the hospitalist service for further evaluation and treatment. Hospital Course The patient is a 46-year-old morbidly obese white male with history of hepatitis C which has gone untreated, intravenous drug use with heroin and history of MRSA skin and soft tissue infections who presented to [facility] emergency room with a complaint of worsening testicular swelling which started 4 days prior to admission. Patient was seen in the emergency department 2 days prior to this admission and was discharged with 10 day course prescription of clindamycin. Patient states that he was face on taking his antibiotics 300 mg by mouth 4 times a day and would set his alarm on his phone to wake him up to take the medication. He believes that his swelling has increased by about a third in the last 12 hours prior to admission. The patient has associated symptoms including leg swelling, lower abdominal swelling , and testicular redness. The patient denied rectal pain, fever, chills, vomiting, or any other symptoms. He is still using IV drugs and describes his heroin habit has a heavy one. The patient was evaluated in the emergency room by Dr. Oracio Lemons. Ultrasound of the scrotum was ordered which showed no subcutaneous gas. However, there was significant amount of cellulitis extending to the abdomen and legs. A CT scan was ordered which also failed to reveal any subcutaneous gas that would suggest Shaka's gangrene. Dr. Christensen agreed to see the patient in urological consultation. Therefore, the patient was admitted to the hospitalist service for further evaluation and treatment. # Cellulitis of the scrotum extending to the abdomen and thighs, present on admission. Active - Based upon findings on ultrasound and CT scan there does not appear to be evidence of Shaka's gangrene. However, patient will need to be followed very closely and repeat CT scan will be performed in a.m. - Meanwhile will continue broad-spectrum antibiotics which included vancomycin to cover MRSA and Meropenem to cover gram negatives and anaerobic bacteria. High-dose oral Diflucan was added to cover Radha which is likely a major portion of the patient's problem if not the source of his problem. - We will check serial CBCs and other inflammatory markers including sedimentation rate, C-reactive protein and pro calcitonin. - We will place a folded towel underneath his scrotum to keep his scrotum elevated. This will help with the edema which is complicating the patient's problem. Will consider diuretic therapy if this is ineffective. - I have consulted Dr. Christensen for urology consultation and follow-up. I appreciate his time and expertise. I have discussed the case with Dr. Christensen before and after he visited with the patient again today. # History of MRSA isolated from numerous skin and soft tissue infections, present on admission. This certainly could be playing a role in the patient's current infection - There is nothing to culture in the area of the scrotum or perineum and will rely on blood cultures obtained from the emergency room to try to identify a primary pathogen. - We will continue vancomycin - There is no need to do an MRSA nasal screen is patient has had numerous infections due to MRSA and is likely a carrier. # History of intravenous drug use primarily with heroin. - Patient has a $60-200 a day heroin habit. - As patient is uncomfortable will prescribe Dilaudid and [place] orally for patient to take for relief. - We will watch for withdrawal. - Patient encouraged to quit his habit after a long discussion. # Morbid obesity with BMI of 53.7 kg/m, present on admission. Active - I suspect patient may have obstructive sleep apnea which is contributing to scrotal edema and lower extremity edema. - We will recommend the patient obtain a sleep study as an outpatient. - We will order nocturnal oximetry. Patient will be supplied oxygen as needed. - Might consider arterial blood gas testing. # History of hepatitis C, present on admission are inactive - Patient will need to seek outpatient treatment - Check patient for HIV Disposition: The patient left the hospital AGAINST MEDICAL ADVICE Exam Vital Signs (Last) Date Time Temp Pulse Resp B/P Pulse Ox O2 Delivery O2 Flow Rate FiO2 01/18/17 22:00 36.6 81 20 155/88 98 Room Air Exam The patient left the hospital AGAINST MEDICAL ADVICE early this morning. Test 01/16/17 08:20 01/17/17 05:30 01/18/17 06:10 01/18/17 12:45 Hemoglobin A1c 6.2% (4.8-5.6) Lactic Acid Level 1.1mmol/L (0.4-2.0) Erythrocyte Sedimentation Rate 52mm/hr (0-15) C-Reactive Protein 1.6mg/dL (0.0-0.5) Pro-B-Type Natriuretic Peptide 309.4pg/mL (0-121) Procalcitonin 0.07ng/mL (0.00-0.08) White Blood Count 4.9th/mm3 (3.8-10.1) Red Blood Count 3.63mil/mm3 (4.40-5.80) Hemoglobin 9.5g/dL (13.8-17.2) Hematocrit 30.8% (41.0-50.0) Mean Corpuscular Volume 84.8fL (81-100) Mean Corpuscular Hemoglobin 26.2pg (27.0-35.0) Mean Corpuscular Hemoglobin Concent 30.8% (32.0-37.0) Red Cell Distribution Width 16.2% (12.3-15.4) Platelet Count 203bil/L (150-400) Neutrophils (%) (Auto) 59.7% (40-74) Lymphocytes (%) (Auto) 28.0% (14-46) Monocytes (%) (Auto) 7.2% (4-12) Eosinophils (%) (Auto) 4.5% (0-5) Basophils (%) (Auto) 0.2% (0-3) Sodium Level 140mEq/L (134-144) Potassium Level 4.2mEq/L (3.5-5.2) Chloride Level 101mEq/L (97-108) Carbon Dioxide Level 26mmol/L (18-29) Blood Urea Nitrogen 14mg/dL (6-24) Creatinine 0.68mg/dL (0.76-1.27) Estimat Glomerular Filtration Rate 134mL/min (>59) Glucose Level 126mg/dL (60-99) Calcium Level 8.8mg/dL (8.5-10.1) Magnesium Level 1.8mg/dL (1.6-2.6) Total Bilirubin 0.3mg/dL (0.0-1.2) Aspartate Amino Transf (AST/SGOT) 44U/L (0-50) Alanine Aminotransferase (ALT/SGPT) 32U/L (0-44) Alkaline Phosphatase 81U/L (25-150) Total Protein 6.8g/dL (6.4-8.4) Albumin 3.3g/dL (3.4-5.0) Vancomycin Level Trough 11.5mcg/mL Microbiology Results Blood cultures are negative 2 days and MRSA screen is still pending. Discharge Medications Discharge Medications Clindamycin (Clindamycin) 300 Mg Capsule 300 MG PO QID Prescribed by: LUIGI LEMOS MD Furosemide (Furosemide) 40 Mg Tablet 40 MG PO DAILY (Reported) Followup Plan Disposition: The patient left the hospital AGAINST MEDICAL ADVICE. Time spent The patient left the hospital AGAINST MEDICAL ADVICE. Emmanuel Negron MD Jan 20, 2017 02:53
[2017-01-20] MEDS ORDERED: Vancomycin Serum Trough XX ONE (13:00)
--- NOTE | 2017-01-20 19:05 | CONS ---
[address] [address] CONSULTATION REPORT PATIENT: CRISTHIAN CHONG : 1970 MR#: [id number] ADMIT: 01/16/2017 JOB ID: [id number] DATE OF SERVICE: REQUESTING PHYSICIAN: Oracio Lemons MD. REASON FOR REQUEST: Scrotal cellulitis. HISTORY OF PRESENT ILLNESS: The patient is a 46-year-old, morbidly obese, white male who presents with 4-5 day history of increasing scrotal contents, pain and tenderness. He was seen in the [facility] Emergency Department approximately two days prior to admission and was prescribed clindamycin with a 10-day course. He returned January 16, 2017 with complaints of increasing pain and tenderness despite use of the antibiotics. He has a history of intravenous and subcutaneous drug addiction (primarily heroin) and has had multiple admissions for incision and drainage of MRSA abscesses. Scrotal ultrasound reveals very thickened skin consistent with cutaneous cellulitis. No definite fluid collection or gas seen. CT scan is reviewed and demonstrates extensive subcutaneous inflammation and thickening of the skin over the pubis, scrotum, lower abdomen and inner, upper thighs. No fluid collection or gas is seen. ALLERGIES/PAST MEDICAL/SURGICAL/SOCIAL/FAMILY HISTORY/REVIEW OF SYSTEMS: Reviewed and discussed with the patient and are unaltered and in agreement with admission history and physical exam by Dr. Emmanuel Negron. PHYSICAL EXAMINATION: Afebrile. Vital signs are stable. He is resting comfortably in bed, morbidly obese gentleman with wound leg wraps bilaterally. Head and neck exam: Male pattern balding. Sclerae are clear. Neck: No JVD or adenopathy. Chest equal and unlabored expansion bilaterally. Heart rate is regular. No extra sounds. Abdomen morbidly obese, soft, no tenderness or mass palpable. Genitalia: The phallus is completely concealed. The scrotum is grossly enlarged, tender. Skin has a mild sheen in some areas and flaking of the superficial skin. There are no violaceous or brown or black areas of discoloration. Perineum is likewise involved in inflammatory process of the skin. Rectal not performed. Extremities as above. Lower extremities are wrapped and not examined. Bilateral palpable radial pulses. DATA BASE: As above in the HPI. Also, WBC 5.9, creatinine 0.75. IMPRESSION: Scrotal cellulitis in a 46-year-old, morbidly obese male with current and past history of intravenous and subcutaneous heroin use. PLAN: 1. I will follow clinically and recommend reimaging in 72 hours or earlier should his clinical situation deteriorate. 2. Agree with Dr. Negron's plan for intravenous vancomycin and diflucan.
== END 2017-01-19 02:20 | disposition left against medical advice (07) | DRG 728 ==
LOC: SED 05:29 → MPC 09:26
PROVIDERS: ADMIT Internal Medicine Infectious Disease; ATTEND Internal Medicine Infectious Disease
DX: N49.2 Inflammatory disorders of scrotum (principal); Z68.43 Body mass index [BMI] 50.0-59.9, adult; L03.311 Cellulitis of abdominal wall; E66.01 Morbid (severe) obesity due to excess calories; F17.210 Nicotine dependence, cigarettes, uncomplicated; F11.10 Opioid abuse, uncomplicated